=== PATIENT | male | born 1955 | race African-American/Black ===

== ENCOUNTER 2025-03-14 12:26 | Outpatient (CLI) | payer MEDICARE, SELFPAY ==
--- NOTE | ~2025-03-14 | MR_ITS ---
MRI of the thoracic spine Clinical History: Back pain Technique: Axial T2-weighted and gradient images, and sagittal T1-weighted, T2-weighted, and STIR genevieve ges were acquired. Findings: There is no fracture or subluxation of the thoracic spine. Vertebral bodies maintain normal height and alignment. No suspicious bone marrow signal abnormality seen. There is moderate to advanc ed degenerative disc narrowing throughout the mid to lower thoracic spine. There are few minimal disc bulges at the mid thoracic spine. At T10-T11, there is disc bulge and facet arthropathy, with mild to moderate canal stenosis but no fr ank cord compression. There is severe bilateral neural foraminal narrowing at T10-T11. There is sever e bilateral neural foraminal narrowing at T12-L1, left worse than right. There is moderate right neur al foraminal narrowing at T7-T8, T8-T9, and T9-T10. No abnormal signal seen in the spinal cord. Paravertebral soft tissues are unremarkable. Impression: Moderate degenerative spondylosis, as above, with multilevel neural foraminal narrowing. There is mil d to moderate canal stenosis at T10-T11 without gretel cord compression. No fracture or subluxation. Reviewed, dictated and finalized at location . Impression: Moderate degenerative spondylosis, as above, with multilevel neural foraminal n arrowing. There is mild to moderate canal stenosis at T10-T11 without gretel cor d compression. No fracture or subluxation.
--- NOTE | ~2025-03-14 | MR_ITS ---
MRI of the cervical spine Clinical History: Back pain Technique: Axial T2-weighted and gradient images, and sagittal T1-weighted, T2-weighted, and STIR genevieve ges were acquired. Findings: There is minimal reversal normal cervical lordosis. No fracture or subluxation evident. The re reactive marrow signal changes due to underlying degenerative disc disease, but no suspicious/aggr essive bone marrow signal abnormality seen. At C2-C3, there is a large central to right paracentral disc extrusion, resulting in moderate to chante re canal stenosis and cord compression at this level. Neural foramina are preserved. At C3-C4, there is severe degenerative disc narrowing. There is minimal disc osteophyte complex with bilateral mild facet arthropathy. There is mild canal stenosis without gretel cord compression. Probab le mild bilateral neural foraminal narrowing. At C4-C5, there is severe degenerative disc narrowing. There is disc osteophyte complex with mild can al stenosis but no gretel cord compression. There is bilateral neural foraminal narrowing with mild bi lateral facet arthropathy. At C5-C6, there is severe degenerative disc narrowing. There is mild disc osteophyte complex with mil d canal stenosis but no gretel cord compression. There is left neural foraminal narrowing. Right neura l foramen probably preserved. At C6-C7, there is severe degenerative disc narrowing. There is disc osteophyte complex with mild can al stenosis but no gretel cord compression. There is advanced bilateral neural foraminal narrowing. No abnormal signal seen in the spinal cord. Paravertebral soft tissues are unremarkable. Impression: Large central to right paracentral disc extrusion at C2-C3, resulting in moderate to severe canal yamilet nosis and cord compression at this level. Advanced degenerative spondylosis in the remainder of the cervical spine as well, though without any other areas of gretel cord compression. Multilevel neural foraminal narrowing present. Reviewed, dictated and finalized at [place] [facility]. Impression: Large central to right paracentral disc extrusion at C2-C3, resulting in modera te to severe canal stenosis and cord compression at this level. Advanced degenerative spondylosis in the remainder of the cervical spine as wel l, though without any other areas of gretel cord compression. Multilevel neural foraminal narrowing present.
--- NOTE | ~2025-03-14 | MR_ITS ---
MRI of the lumbar spine Clinical History: Back pain Technique: Axial T2-weighted images, and sagittal T1-weighted, T2-weighted, and and T2 fat-sat images were acquired. Findings: No acute fracture or subluxation seen. Vertebral bodies maintain normal height and alignmen t. There is heterogeneous marrow signal due to underlying degenerative disc disease with areas of Mod ic signal changes and reactive marrow edema. No suspicious bone marrow signal abnormality seen. At L1-L2, there is severe degenerative tearing. Disc bulge and severe facet arthropathy result in mod erate to severe spinal canal stenosis/thecal sac compression. There is severe bilateral neural forami nal narrowing. At L2-L3, there is severe degenerative disc narrowing. Disc bulge and moderate facet arthropathy resu lt in mild central canal stenosis/thecal sac compression. There is severe left neural foraminal narro wing and moderate to severe right neural foraminal narrowing. At L3-L4, there is advanced degenerative disc narrowing. There is mild disc bulge with moderate facet arthropathy. No gretel central canal stenosis. There is moderate bilateral neural foraminal narrowing . At L4-L5, there is advanced degenerative disc narrowing. Disc bulge and advanced facet arthropathy re sult in mild to moderate central canal stenosis/thecal sac compression. There is severe bilateral navneet ral foraminal narrowing. At L5-S1, there is advanced degenerative disc narrowing with mild disc bulge and moderate facet arthr opathy. No central canal stenosis. There is moderate to severe bilateral neural foraminal narrowing, right worse than left. Paravertebral soft tissues are unremarkable. Impression: Severe degenerative spondylosis throughout the lumbar spine, as detailed above. Reviewed, dictated and finalized at [facility]. Impression: Severe degenerative spondylosis throughout the lumbar spine, as detailed above.
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
== END 2025-03-14 12:27 | disposition home or self-care (01) ==
PROVIDERS: PCP Family Medicine; Visit Provider Psychiatry & Neurology Neurology
DX: M50.21 Other cervical disc displacement, high cervical region (principal); M50.01 Cervical disc disorder with myelopathy, high cervical region; M48.02 Spinal stenosis, cervical region; M47.812 Spondylosis without myelopathy or radiculopathy, cervical region; M47.816 Spondylosis without myelopathy or radiculopathy, lumbar region; M47.814 Spondylosis without myelopathy or radiculopathy, thoracic region; M48.04 Spinal stenosis, thoracic region; Z18.10 Retained metal fragments, unspecified; G44.229 Chronic tension-type headache, not intractable; R29.6 Repeated falls; Z87.828 Personal history of other (healed) physical injury and trauma
CPT/HCPCS: 72141; 72146; 72148; 73552

== ENCOUNTER 2025-05-03 09:55 | Outpatient (CLI) | payer MEDICARE, SELFPAY ==
--- NOTE | ~2025-05-03 | CT_ITS ---
Noncontrast CT scan of the cervical spine Technique: Multiple contiguous axial [address] images of the cervical spine were obtained and rec onstructed in 2D sagittal and coronal planes on the acquisition scanner. Dose reduction technique was used on this scan by utilizing automated exposure control, adjustment of the mA and/or kV according to patient size. The dose-length product (DLP) was 568.02 mGy-cm. Clinical History: Disease of spinal cord, unspecified Findings: No acute fracture or subluxation. There is minimal reversal normal cervical lordosis. There is moderate degenerative change at the articulation of the odontoid process with the anterior arch o f C1. At C2-C3, there is moderate degenerative distended. There is extensive ossification the posterior rosie gitudinal ligament at the C2 and C3 levels. There is severe canal stenosis with associated severe cor d compression at the C2 level, C2-C3 disc space level. There is probable mild canal stenosis at the C 3 level related to ossification the posterior longitudinal ligament. There is right neural foraminal narrowing at C2-C3. At C3-C4, there is severe degenerative spurring. There is facet arthropathy bilaterally resulting in bilateral severe neural foraminal narrowing. Possible mild canal stenosis. At C4-C5, there is severe degenerative disc narrowing. There is disc bulge. There is left neural fora tray narrowing and possible mild right neural foraminal narrowing. Probable moderate canal stenosis. At C5-C6, there is severe degenerative disc narrowing. There is minimal disc bulge with probable mild canal stenosis. There is bilateral neural foraminal narrowing, left worse than right. At C6-C7, there is severe degenerative disc narrowing. There is focal ossification the posterior long itudinal ligament with probable moderate canal stenosis. There is bilateral moderate to severe neural foraminal narrowing. Paravertebral soft tissues are otherwise unremarkable. 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 Additional advanced degenerative spondylitic changes throughout the cervical spine, as above. Reviewed, dictated and finalized at location M. 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 Additional advanced degenerative spondylitic changes throughout the cervical sp ine, as above.
--- NOTE | ~2025-05-03 | XR_ITS ---
Cervical Spine: AP, lateral, open-mouth views Clinical History: Pain Findings: There is reversal of the normal cervical lordosis. No fracture or sublocation. There is sev ere degenerative disc narrowing throughout the cervical spine. There is moderate facet arthropathy th roughout. No instability evident on flexion or extension. Pre-vertebral soft tissues are unremarkable . Impression: Advanced degenerative spondylosis. No fracture, subluxation, or instability identified. Reviewed, dictated and finalized at location . Impression: Advanced degenerative spondylosis. No fracture, subluxation, or instability identified.
== END 2025-05-03 09:56 | disposition home or self-care (01) ==
PROVIDERS: PCP Family Medicine; Visit Provider Neurological Surgery
DX: G95.9 Disease of spinal cord, unspecified (principal); M48.02 Spinal stenosis, cervical region; M43.02 Spondylolysis, cervical region
CPT/HCPCS: 72050; 72125

== ENCOUNTER 2025-06-11 11:32 | Outpatient (CLI) | payer MEDICARE, SELFPAY ==
--- NOTE | ~2025-06-11 | XR_ITS ---
EXAMINATION: XR chest 2V 06/11/2025 13:09 INDICATION: Disease of the spinal cord. Preop surgery. PROCEDURE: PA and lateral views the chest COMPARISON: No prior studies for comparison. FINDINGS: The lungs are clear. The cardiomediastinal silhouette is within normal limits. There are no pleural effusions. There is no pneumothorax suspected. There are bilateral nipple shadows. IMPRESSION: 1: NO ACUTE CARDIOPULMONARY DISEASE. Reviewed, dictated and finalized at location B.
--- OUTSIDE RECORDS SUMMARY | 2025-06-11 11:38 | XMS_ITS | Clinical Summary ---
Author Organization [facility] Address [facility] [place] [address] Care Team Providers Care Control Officer Name Role Phone Michele Monique MD Primary Care Provider [phone] Colt Montes MD Unavailable [phone] Allergies Active Allergy Reactions Criticality Noted Date Comments Cyclobenzaprine Other (see comment) Low 06/13/2021 Shrimp Extract Angioedema High 11/20/2021 Tramadol Other (see comment), GI Upset Low 01/29/2015 Stomach/GI Upset shaking Medications carbidopa-levo dopa 25-100 MG tablet 9 Active furosemide 20 MG tablet 9 Active tamsulosin 0.4 MG Cap 9 Active sildenafil (VIAGRA) 100 MG tablet Viagra 100 mg tablet TAKE 1 TABLET BY MOUTH EVERY DAY NEEDED, APPROXIMATELY 1 HOUR BEFORE SEXUAL ACTIVITY Active simvastatin 20 MG tablet Take 1 tablet (20 mg total) by mouth daily. 1 Active gabapentin 600 MG tablet 1 Active VENTOLIN HFA 108 (90 Base) MCG/ACT inhaler Inhale 2 puffs into the lungs every 4 (four) hours as needed. 0 Active EPINEPHrine 0.3 MG/0.3ML injection 1 Active famotidine 20 MG tablet TAKE 1 TABLET BY MOUTH TWICE DAILY FOR 15 DAYS 1 Active traMADol 50 MG tablet tramadol 50 mg tablet Active Cholecalcifero l 50 MCG (2000 UT) Cap Take 2,000 Units by mouth daily. 3 Active QULIPTA tablet Take 1 tablet (30 mg total) by mouth daily. 3 Active aspirin EC (ECOTRIN) 325 MG tablet Take 1 tablet (325 mg total) by mouth daily. 4 Active metoprolol succinate ER (TOPROL-XL) 25 MG 24 hr tablet Take 0.5 tablets (12.5 mg total) by mouth daily. Active nitroglycerin (NITROSTAT) 0.4 MG SL tablet DISSOLVE 1 TABLET UNDER THE TONGUE DIRECTED Active amLODIPine (NORVASC) 5 MG tablet Take 1 tablet (5 mg total) by mouth daily. Active fish oil (OMEGA-3 FATTY ACID) 1000 MG Cap capsule Take 1 capsule (1,000 mg total) by mouth 2 (two) times daily. Active magnesium oxide (MAG-OX) 400 (240 Mg) MG tablet Take 1 tablet (400 mg total) by mouth daily. 4 Active lisinopril-hyd roCHLOROthiazi de (ZESTORETIC) 20-12.5 MG tablet Take 2 tablets by mouth daily. 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 01/31/2019 Dyslipidemia 06/01/2017 Hypertension 03/09/2016 Encounters Date Type Department Care Team Description 03/14/2025 10:45 AM CDT Office Visit [facility], [address] [address] Jose Velze PA Arrhythmia (PVC FOLLOW UP) 03/14/2025 Travel from Last 3 Months Family History Medical History Relation Comments Hypertension Brother Colon Cancer Father No Known Problems Maternal Grandfather No Known Problems Maternal Grandmother No Known Problems Paternal Grandfather No Known Problems Paternal Grandmother Hypertension Sister Relation Status Comments Brother Father Maternal Grandfather Maternal Grandmother Mother Paternal Grandfather Paternal Grandmother Sister Social History Tobacco Use Types Packs/Day Years Used Date Smoking Tobacco: Never Passive Smoke Exposure: Never Smokeless Tobacco: Never Tobacco Cessation:Counseling Given: No Comments:Never Smoked Alcohol Use Standard Drinks/Week Comments Not Currently 0 (1 standard drink = 0.6 oz pur e alcohol) none AUDIT-C Answer Date Recorded Frequency of Alcohol Consumption 2-4 times a mon 01/31/2019 Average Number of Drinks Not on file 019 Frequency of Binge Drinking Not on file 01/13 PHQ-2 Answer Date Recorded Patient Health Questionnaire-2 Score 1 09/26/2023 Sex and Gender Information Value Date Recorded Sex Assigned at Male 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 Male 4:48 PM CDT Gender Identity Not on file Sexual Orientation Not on file Last Filed Vital Signs Vital Sign Reading Time Taken Comments Blood Pressure 138/78 03/14/2025 10:46 AM CDT Pulse 61 03/14/2025 10:46 AM CDT Temperature 36.8 C (98.2 F) 01/31/2025 10:45 AM CDT Respiratory Rate 16 01/31/2025 1:00 PM CDT Oxygen Saturation 95% 03/14/2025 10:46 AM CDT Inhaled Oxygen Concentration - - Weight 88.9 kg (196 lb) 03/14/2025 10:46 AM CDT Height 172.7 cm (5' 8) 03/14/2025 10:46 AM CDT Body Mass Index 29.8 03/14/2025 10:46 AM CDT Plan of Treatment Health Maintenance Due Date Last Done Comments Hepatitis C 1972 Zoster Vaccines (1 of 2) 2004 Annual Medicare Wellness Visit 2019 COVID-19 Vaccine ( season) 2024 09/09/2023, 09/19/2022, 08/19/2021, Additional history exists PHQ-2 (Physician Chunky) 11/14/2024 09/26/2023 DTaP, Tdap and Td Vaccines (2 - Td or Tdap) 01/14/2026 01/15/2016 RSV Immunization or 60+ Years (1 - 1-dose 75+ series) 2029 Colorectal Cancer Screening Colonoscopy (10 Years) 02/27/2032 02/26/2022, 02/26/2022 Pneumococcal Vaccine: 50+ Years Completed 07/01/2021, 10/02/2019 Meningococcal B Vaccine Aged Out No l onger eligible based on patient's age to complete this topic Meningococcal Vaccine Aged Out No rosie priya eligible based on patient's age to complete this topic RSV Immunizations Under 20 Months Aged Out No longer eligible based on patient's age to complete this topic Procedures Procedure Name Priority Date/Time Associated Diagnosis Comments ELECTROCARDIOGRAM (NON MIDMARK ACQUIRED) Routine 03/14/2025 10:53 AM CDT Heart palpitations COLONOSCOPY Routine 02/26/2022 10:11 AM CDT from Last 3 Months or Most Recently Relevant to Health Maintenance Results * ELECTROCARDIOGRAM (03/14/2025 10:53 AM CDT) 03/14/2025 10:5 3 AM CDT Narrative [facility] - 03/14/2025 9:59 PM CDT [facility] Test Date: 2025-03-14 Pat Name: SOREN ELLIS Department: 112 Room: Gender: Male Supervisor Rod Placing: : 1955 Requested By: JOSE VELEZ Order Number: [id number] Reading CHRIS Artis Measurements Intervals [place] Rate: 59 P: 77 VT: 157 QRS: 231 QRSD: 168 T: 34 QT: 449 QTc: 445 Interpretive Statements SINUS BRADYCARDIA RIGHT AXIS DEVIATION RIGHT BUNDLE BRANCH BLOCK SEPTAL MYOCARDIAL INFARCTION, PROBABLY OLD Procedure Note Ed Artis MD - 03/14/2025 [facility] Test Date: 2025-03-14 Pat Name: SOREN ELLIS Department: 112 Room: Gender: Male Supervisor Rod Placing: : 1955 Requested By: JOSE VELEZ Order Number: [id number] Reading : Ed Artis Measurements Intervals [place] Rate: 59 P: 77 VT: 157 QRS: 231 QRSD: 168 T: 34 QT: 449 QTc: 445 Interpretive Statements SINUS BRADYCARDIA RIGHT AXIS DEVIATION RIGHT BUNDLE BRANCH BLOCK SEPTAL MYOCARDIAL INFARCTION, PROBABLY OLD us Jose VILLA PROCEDURES-ORDERABLE NO CHARGE Final Result [facility] from Last 3 Months Insurance [facility] Advance Directives * Full Code (Latest Code Status on File) Date Activated Date Inactivated Comments 01/31/2025 11:05 AM 01/31/2025 3:21 PM Care Teams Control Officer Relationship Specialty Start Date End Date Michele Monique MD PCP - General 02/08/17 Colt Montes MD [address] [place] [address] CARDIOVASCULAR DISEASE 12/07/24
--- OUTSIDE RECORDS SUMMARY | 2025-06-11 11:38 | XMS_ITS | Clinical Summary ---
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 Gender Identity Not on file Sexual Orientation Not on file Plan of Treatment Health Maintenance Due Date Last Done Comments Hepatitis C Virus (HCV) Screening 1955 Cologuard 1999 Colonoscopy 1999 Colorectal Cancer Screening 1999 Immunochemical Fecal Occult Blood 1999 Zoster Immunization (1 of 2) 2004 SARS-COV-2 Immunization ( season) 2024 08/19/2021, 01/31/2021, 01/24/2021, Additional history exists Influenza Immunization (#1) 07/15/202507/15, 10/02/2019, 08/01/2017, Additional history exists Respiratory Syncytial Virus (RSV) Immunization (Adult) (1 - 1-dose 75+ series) 2029 DTaP/Tdap/Td Immunization Discontinued 01/15/2016 TdaP Immunization Completed 01/15/2016 Pneumococcal Immunization (50+ years) Completed 07/01/2021, 10/02/2019 Hepatitis B Immunization Aged Out No longer eligible based on patient's age to complete this topic Human Papillomavirus (HPV) Immunization Aged Out No longer eligible based on patient's age to complete this topic Meningococcal Immunization (ACWY) Aged Out No longer eligible based on patient's age to complete this topic Rotavirus Immunization Aged Out No lo nger eligible based on patient's age to complete this topic
[2025-06-11 13:32] LABS: Hematocrit 37.9 % (42.0-52.0); Hemoglobin 11.8 g/dL (14.0-18.0); Mean Corpuscular HGB Conc 31.1 g/dl (32-36); Mean Corpuscular Hemoglobin 27.6 pg (26-34); Mean Corpuscular Volume 88.6 fl (80-100); Platelet Count Result 213 k/mm3 (150-375); Red Blood Count 4.28 M/mm3 (4.6-6.20); White Blood Count 4.8 K/mm3 (4.5-10.0)
[2025-06-11 13:36] LABS: Add Urine Microscopic? NO; Appearance Urine Clear (Clear); Glucose Urine UA Negative (Negative); Leukocyte Esterase Ur Negative LEU/UL (Negative); Nitrate Urine Negative (Negative); Specific Grav Ur 1.021 (1.001-1.035)
[2025-06-11 13:44] LABS: INR 1.0; Partial Thromboplastin Time 25.4 Seconds (22.3-36.8); Prothrombin Time 13.1 Seconds (11.1-14.7)
[2025-06-11 13:53] LABS: Anion Gap 7 mmol/L (4-12); Blood Urea Nitrogen 22 mg/dL (9-20); Calcium 8.7 mg/dL (8.4-10.2); Carbon Dioxide 28 mmol/L (22-30); Chloride 103 mmol/L (98-107); Estimated Glomerular Filt Rate 51; Glucose 94 mg/dL (65-110); Potassium 3.9 mmol/L (3.4-5.0); Sodium 138 mmol/L (137-145)
== END 2025-06-11 11:33 | disposition home or self-care (01) ==
LOC: ANHSURGERY 11:36
PROVIDERS: PCP Family Medicine; Visit Provider Neurological Surgery
DX: Z01.818 Encounter for other preprocedural examination (principal); G95.9 Disease of spinal cord, unspecified; M43.12 Spondylolisthesis, cervical region
CPT/HCPCS: 36415; 71046; 80048; 81003; 85027; 85610; 85730; 86850; 86900; 86901

== ENCOUNTER 2025-06-20 08:47 | Outpatient (CLI) | payer MEDICARE, SELFPAY ==
--- NOTE | ~2025-06-20 | CT_ITS ---
EXAMINATION: [id number] DATE: 06/20/2025 09:37 INDICATION: Preoperative planning. Disease of spinal cord. TECHNIQUE: Computed tomography (CT) of the cervical spine was performed without intravenous contrast. Automated exposure control and iterative reconstruction technique were employed. The dose-length pro duct was 607.69 mGy-cm. COMPARISON: None FINDINGS: Slight reversal of the normal cervical lordosis. 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 Vertebral body heights are normal. There is severe disc height loss at C3-C4 through C6-C7 as wel l as in the upper thoracic spine at T2-T3 and T3-T4. Moderate disc height loss at C2-C3, C7-T1 and T1 -T2. There multiple small endplate erosions throughout the cervical and upper thoracic spine, with di ffuse sclerosis of the bones, both findings which can be seen with renal osteodystrophy. There is pro minent heterotopic ossification along the posterior longitudinal ligament beginning at the level of t he base of the odontoid process and extending caudally to the level of the inferior endplate of C3. A dditional ossification along the posterior longitudinal ligament at C5 and C6. This results in modera te central canal stenosis at the level of the dens progressing to moderate to severe at level of C2-C 3 which along with the more caudal levels will be further detailed below. Small amount of atheroscler otic calcification at the bilateral carotid bulbs. Cervical soft tissues are otherwise unremarkable. Visualized portion of the upper lungs along with the bilateral mastoid air cells and middle ear cavit ies are clear. The following disc levels are specifically discussed: C2-C3: Ossification of the posterior longitudinal ligament which is more prominent on the right which severely narrows the right side of the central canal. There is moderate stenosis of the left side of the central canal. There is mild right and moderate left uncovertebral joint osteoarthritis. There i s mild bilateral facet joint osteoarthritis. There is mild left neural foraminal stenosis. C3-C4: Posterior disc osteophyte complex. There is moderate right and severe left uncovertebral joint osteoarthritis. There is severe bilateral facet joint osteoarthritis. There is moderate bilateral ne ural foraminal stenosis. There is mild central canal stenosis. C4-C5: Posterior disc osteophyte complex. There is severe right and moderate to severe left uncoverte bral joint osteoarthritis. There is moderate left and mild to moderate right facet joint osteoarthrit is. There is mild right and moderate left neural foraminal stenosis. There is mild moderate central c anal stenosis. C5-C6: Posterior disc osteophyte complex. There is severe bilateral uncovertebral joint osteoarthriti s. There is mild bilateral facet joint osteoarthritis. There is moderate bilateral neural foraminal s tenosis. There is mild to moderate central canal stenosis. C6-C7: Posterior disc osteophyte complex along with ossification along the posterior longitudinal lig ament There is severe bilateral uncovertebral joint osteoarthritis. There is mild bilateral facet ted nt osteoarthritis. There is moderate bilateral neural foraminal stenosis. There is moderate central c anal stenosis. C7-T1: There is moderate bilateral uncovertebral joint osteoarthritis. There is moderate bilateral fa cet joint osteoarthritis. There is mild to moderate bilateral neural foraminal stenosis. There is no central canal stenosis. IMPRESSION: 1. Severe cervical spondylosis along with ossification along the posterior longitudinal ligament whic h contributes to moderate to severe right-sided prominent central canal stenosis at C2-C3 with additi onal mild to moderate central canal stenosis from the level of the base of the dens through C6-C7. 2. Diffuse sclerosis of the bones and multiple small endplate osteophytes consistent with renal osteo dystrophy. Reviewed, dictated and finalized at location A. IMPRESSION: 1. Severe cervical spondylosis along with ossification along the posterior long itudinal ligament which contributes to moderate to severe right-sided prominent central canal stenosis at C2-C3 with additional mild to moderate central canal stenosis from the level of the base of the dens through C6-C7. 2. Diffuse sclerosis of the bones and multiple small endplate osteophytes consi stent with renal osteodystrophy.
--- OUTSIDE RECORDS SUMMARY | 2025-06-20 08:54 | XMS_ITS | Clinical Summary ---
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
== END 2025-06-20 08:48 | disposition home or self-care (01) ==
PROVIDERS: PCP Family Medicine; Visit Provider Neurological Surgery
DX: Z01.818 Encounter for other preprocedural examination (principal); M47.892 Other spondylosis, cervical region
CPT/HCPCS: 72125

== ENCOUNTER 2025-06-26 16:33 | Inpatient (IN) | payer MEDICARE, SELFPAY ==
[2025-06-11 12:11] VITALS: BP 135/65; PULSE 58; RESP 16; TEMP 36.9; O2SAT 98; BMI 30.9
--- NOTE | 2025-06-11 12:36 | PC.NURSE ---
Report to the Outpatient Waiting Room, entrance under the green pavilion located off [facility], at time __0900am on date __06/26/25 . Planned Procedure Time: __1100am .? Time changes happen often and if your time is changed the preop area will call you the afternoon before. - You and your visitor will be asked to self-screen and do not enter if you have any COVID symptoms. Please call surgeon if you need to reschedule. - A mask is optional within the hospital at this time. Patients may have clear liquids (water, carbonated beverages, clear teas, apple juice) until 3 hours prior to surgery with a maximum of 20 ounces. - No food from midnight until time of surgery and no smoking, or chewing tobacco (or any form of nicotine). No chewing gum, candy or mints. (0800am) Take only the following medications with a SIP of water on the morning of surgery: Inhaler, Amlodipine, Carbidopa, Gabapentin, Metoprolol, Tramadol if needed , tylenol if needed DO NOT STOP ANY OF YOUR OTHER PRESCRIPTION MEDICATIONS PRIOR TO SURGERY EXCEPT THE FOLLOWING Hold all vitamins, herbs, probiotics and supplements for 3 days per anesthesiologist. Date to take last dose is 06/22/25 Medications to discontinue per physician ___Aspirin for [address] Porter Date to take last dose____06/17/25 Please no make-up, nail icelandic, hairspray, perfume, deodorant, or body powder the day of surgery.? No jewelry (including any body piercings) or valuables the day of surgery, leave them at home.? Please take a shower or bath the night before, or the morning of, surgery with an antibacterial soap.?(GOLD DIAL) Wear comfortable, loose fitting clothing. Bring overnight bag w toiletries, good shoes ? - Jewelry must be removed prior to entering the operating room.? Rings and piercings that are not removed may be cut off. - The hospital will not accept responsibility for valuables.? - Please leave all valuables, including medications, at home the day of surgery. If you are going home after surgery, a licensed truck driver supervisor must drive you home.? - NO public transportation without another adult if you receive anesthesia. - We recommend that an adult stay with you for 24 hours following discharge. - We also recommend that you do not drive, make important decision, drink alcoholic beverages, or take any drugs that were not prescribed by your health care provider for at least 24 hours after your discharge time. Follow any additional instructions given to you from your surgeon. Telephone instructions given to Patient and asked if any additional questions and then verbalized understanding. Patient advised to call surgeon office or pre surgery nurse liaison [phone] if any additional questions.
[2025-06-26] VITALS (15 sets, daily range): BP systolic 110–152; BP diastolic 55–82; PULSE 49–65; RESP 14–20; TEMP 36.4–36.8; O2SAT 95–100
--- NOTE | ~2025-06-26 | XR_ITS ---
EXAMINATION: XR fluoroscopy no charge DATE: 06/26/2025 11:00 CDT INDICATION: CERVICAL FUSHION C2-C3 . TECHNIQUE: 3 fluoroscopic images of the cervical spine were obtained during C2-3 fusion. Fluoroscopy exposure time was 4.7 seconds. Air Kerma 0.85 mGy. DAP 0.17 mGym2. COMPARISON: None FINDINGS/IMPRESSION: Fluoroscopic documentation of C2-3 fusion. Please refer to the operative note for complete procedural details. Reviewed, dictated and finalized at location K.
--- OUTSIDE RECORDS SUMMARY | 2025-06-26 01:32 | XMS_ITS | Clinical Summary ---
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
--- OUTSIDE RECORDS SUMMARY | 2025-06-26 01:33 | XMS_ITS | Clinical Summary ---
Author Organization [facility] Address [facility] [place] [address] Care Team Providers Care Rotor Casting Machine Operator Name Role Phone Michele Monique MD Primary Care Provider [phone] Colt Montes MD Unavailable [phone] Allergies Active Allergy Reactions Criticality Noted Date [...] replacement surgery 01/31/2019 Dyslipidemia 06/01/2017 Hypertension 03/09/2016 Family History Medical History Relation Comments Hypertension [...] Frequency of Alcohol Consumption 2-4 times a tue01/31/2019 Average Number of Drinks Not on file 019 Frequency of Binge Drinking Not on file 01/13 PHQ-2 Answer Date Recorded Patient Health Questionnaire-2 Score 1 09/26/2023 Sex and Gender Information Value Date Recorded Sex Assigned at Male 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 Male 4:48 PM CDT Gender [...] 09/19/2022, 08/19/2021, Additional history exists PHQ-2 (Physician Quinault) 11/14/2024 09/26/2023 DTaP, Tdap and Td Vaccines [...] Procedure Name Priority Date/Time Associated Diagnosis Comments COLONOSCOPY Routine 02/26/2022 10:11 AM CDT from Last 3 Months or Most Recently Relevant to Health Maintenance Insurance [facility] Advance Directives * Full Code (Latest Code Status on File) Date Activated Date Inactivated Comments 01/31/2025 11:05 AM 01/31/2025 3:21 PM Care Teams Rotor Casting Machine Operator Relationship Specialty Start Date End Date Michele Monique MD PCP - General 02/08/17 Colt Montes MD [address] [place] [address] [address] [place], [place] CARDIOVASCULAR DISEASE 12/07/24
[2025-06-26] MEDS: LACTATED RINGERS 1,000 ML 30 ML IV CONT ×2 (10:00→14:11)
--- NOTE | 2025-06-26 10:25 | P.HP_ITS ---
H&P: HPI History of Present Illness Date/Time: 06/26/25 10:25 Chief Complaint: myelopathy Narrative: From 04/18: Mr. Garcia is a 69-year-old male with history of Parkinson disease who was referred by Dr. Landaverde for evaluation of cervical myelopathy. The patient and his daughter described progressive issues with balance and falls over the last 6-12 months. His daughter indicates that he falls 2 times per week. He states that he has to hold onto galindo or furniture in order to stabilize himself. He uses a cane as well for stability, and he started using this after having hip replacement in 2017. He indicates that his right side overall is weaker than his left but denies any issues with dropping objects or fine motor dysfunction of his hands. He infrequently has numbness in his hands. He also describes pain across his lower back when he gets up to walk. He seemingly has claudicatory pain in the legs with walking as well. He denies any bowel or bladder changes. He initially indicated that he has no pain in his neck or arms but later indicated that he has pain in the right shoulder radiating to the elbow. He denies radicular pain from the neck. He notably had a cardiac PVC ablation in January at [facility]. He continues to wear a Holter monitor. He takes a baby aspirin but no other blood thinners. He follows with a anesthesia associate in [place]. From 05/16: He denies any significant changes since his last visit. He returns today with additional imaging to review. He indicates that he is still working in a halfway-type position. Review of Systems Review of Systems: All systems reviewed & are unremarkable except as noted in HPI and below PMFSH Past Medical History Medical History Cervical myelopathy Episodic migraine Myelopathy Frequent falls Lower back pain REM behavioral disorder Chronic tension headaches Social History Social History Smoking status: Never smoker Alcohol intake: current Substance use: former Substance use type: marijuana Do You Feel Safe in your Home?: Yes Lack of Transportation: No Lack of Food: Sometimes True Current Housing: I Have Housing Concerned About Future Housing: No Difficulty Paying Gas/Electric Bills: YES Difficulty Paying for Meds: YES Currently Unemployed: YES Education: High School Diploma/GED Difficulty w/ Childcare or Family Care: No Living arrangements: alone Occupation/Education: unemployed Gender identity (if verbalized by the patient): Male Meds Home Medications and Allergies Home Medications ?Medication ?Instructions ?Recorded ?Confirmed ?Type acetaminophen 500 mg capsule 500 mg PO Q6H PRN pain 08/16/23 06/11/25 History cholecalciferol (vitamin D3) 50 50 mcg PO DAILY 08/16/23 06/11/25 History mcg (2,000 unit) capsule gabapentin 600 mg tablet 600 mg PO TID 08/16/23 06/11/25 History simvastatin 20 mg tablet 20 mg PO DAILY 08/16/23 06/11/25 History tramadol 50 mg tablet 50 mg PO Q6H PRN pain 08/16/23 06/11/25 History carbidopa 25 mg-levodopa 100 mg 1 tablet PO TID #120 tabs 05/06/25 06/11/25 Rx tablet albuterol sulfate 90 mcg/actuation 1 puff inhalation Q6H PRN 06/11/25 06/11/25 History aerosol inhaler bronchospasm amlodipine 10 mg tablet 10 mg PO DAILY 06/11/25 06/11/25 History aspirin 81 mg tablet,delayed 81 mg PO DAILY 06/11/25 06/11/25 History release (Adult Aspirin Regimen) atogepant 60 mg tablet (Qulipta) 60 mg PO DAILY PRN migraine 06/11/25 06/11/25 History headache ferrous sulfate 325 mg (65 mg 325 mg PO DAILY 06/11/25 06/11/25 History iron) tablet (FeroSul) hydrochlorothiazide 12.5 mg capsule 12.5 mg PO .day 06/11/25 06/11/25 History losartan 50 mg tablet 50 mg PO DAILY 06/11/25 06/11/25 History metoprolol succinate 25 mg 25 mg PO DAILY 06/11/25 06/11/25 History tablet,extended release 24 hr prazosin 2 mg capsule 2 mg PO QPM 06/11/25 06/11/25 History tamsulosin 0.4 mg capsule 0.4 mg PO .am 06/11/25 06/11/25 History Allergies Allergy/AdvReac Type Severity Reaction Status Date / Time shrimp Allergy Severe Anaphylaxis Verified 06/26/25 10:05 NSAIDS (Non-Steroidal AdvReac Severe kidney Verified 06/26/25 10:05 Anti-Inflamma issues should not use cyclobenzaprine AdvReac Unknown Other Verified 06/26/25 10:05 Vital Signs Vital Signs - 24 hr 06/26/25 09:30 Temperature 97.7 F Pulse Rate 49 L Respiratory Rate 16 Blood Pressure 131/62 Pulse Oximetry 98 Oxygen Delivery Room Air Exam Narrative: Hyperreflexia in lower extremities Walks with cane Unless otherwise stated above, the patient's physical exam is as follows: General: -Well developed and well nourished. No a cute distress. Cooperative with exam. Mental status: -Awake and oriented to person, place, an d time. Affect is normal. -Fund of knowledge appropriate -Recent and remote memory are intact -Attention span and concentration appear normal -Language function is normal -There is no evidence of aphasia in conv ersational speech. Cranial nerves: -CN II: Visual mills full to bedside co nfrontation -CN III, IV, : Pupils equal, round, an d reactive to light; extraocular movements, no ptosis, no nystagmus -CN V: Facial sensation intact in V1 thr ough V3 distributions -CN VII: Face symmetric -CN VIII: Hearing intact to conversation al speech -CN IX, X: Palate elevates symmetrically ; normal phonation -CN XI: Symmetric full strength of porter ocleidomastoid and trapezius muscles -CN XII: Tongue protrudes midline Integumentary: -No obvious skin lesions or masses Motor: -Muscle tone normal without spasticity o f flaccidity. No atrophy. No fasciculations. -No pronator drift -Right upper extremity: deltoid 5/5, bic eps 5/5, triceps 5/5, wrist extensors 5/5, wrist flexors 5/5, intrinsics 5/5 -Left upper extremity: deltoid 5/5, pavel ps 5/5, triceps 5/5, wrist extensors 5/5, wrist flexors 5/5, intrinsics 5/5 -Right lower extremity: iliopsoas 5/5, q uadriceps 5/5, hamstrings 5/5, tibialis anterior 5/5, gastroc-soleus 5/5, EHL 5/5 -Left lower extremity: iliopsoas 5/5, qu adriceps 5/5, hamstrings 5/5, tibialis anterior 5/5, gastroc-soleus 5/5, EHL 5/5 Sensory: -Intact to light touch throughout -Normal proprioception throughout Reflexes: -1-2+ DTR's throughout -No Marshall's, clonus, or Babinski bilat romaine I personally reviewed the MRI cervical spine which shows evidence of thickening of the posterior longitudinal ligament extending from C1-C3. There is a right paracentral disc herniation at C2-3 causing spinal cord compression. There are diffuse degenerative changes throughout his cervical spine with significant degenerative disc disease of all discs. he has severe neuroforaminal stenosis bilaterally at C3-4 C4-5, and C6-7, with severe left neuroforaminal stenosis at C5-6 I personally viewed the MRI thoracic spine which shows multiple areas of stenosis in the thoracic spine without significant spinal cord compression. There is also severe central stenosis at L1-2. The tip of the conus is at this level I personally reviewed the CT cervical spine which shows evidence OPLL with calcified disc herniation on the right side at C2-3 contributing to severe central stenosis and spinal cord compression I personally reviewed the dynamic cervical x-rays that do show a slight anterolisthesis of C2 on C3 and slight kyphosis across C2-4 Assessment and Plan Assessment and plan (1) Cervical myelopathy: Code(s): G95.9 - Disease of spinal cord, unspecified Status: Acute Plan Mr. Garcia is a 69-year-old male with history of Parkinson's disease who presents with 6-12 months of progressive gait imbalance and falls who had recent imaging through Neurology showing concern for spinal cord compression particularly the C2-3 level. On physical exam, he does have some hyperreflexia in the lower extremities but no Marshall's, clonus, or Babinski. I reviewed his MRI cervical spine that shows concern for OPLL with a disc herniation at C2-3 causing significant spinal cord compression. There are also various areas of stenosis in his thoracic spine and severe central stenosis at L1-2 with the tip of his conus ends. He then had a CT cervical spine showing evidence of OPLL with calcified disc herniation at C2-3 contributing to the severe central stenosis. His flexion-extension x-rays show slight anterolisthesis of C2 on C3 with the slight kyphosis spanning C2-4. I reviewed the imaging with the patient in person and his daughter over the phone. While he has several areas of stenosis, I am most concerned about the severe cervical stenosis with spinal cord compression and have recommended treatment of this 1st. I have offered him surgery in the form of C2-4 posterior fusion with C2 and C3 laminectomies. We discussed surgery in detail including risks, expected recovery, and restrictions after surgery. We discussed the expectation that surgery will prevent worsening of symptoms and that his symptoms may not improve after surgery. The patient and his daughter expressed understanding and would like to proceed as discussed.
--- NOTE | 2025-06-26 10:25 | WPDHPUPDATE1 ---
History and Physical Update Update Date/Time: 06/26/25 10:25 History and Physical has been reviewed, including an updated exam of the patient. There are NO changes in the patient's condition. Risks, benefits, and alternatives have been discussed and questions answered. Patient agrees to proceed with procedure.
--- NOTE | 2025-06-26 10:43 | WPDANESEPPF ---
Anes - Initial Pre Proc Eval Procedure: Operation Date: 06/26/25 11:00 Proposed Procedures p Stereotactic Computer Assisted C2-3, C3-4, Posterior Cervical Fusion with C2-C3 Laminectomies - Blanca Porter MD Date/Time: 06/26/25 10:43 Surgeon: Blanca Porter MD Pre Op Diagnosis: Cervical Myelopathy, cervical spondylothiasis Pre Op Diagnosis: cervical myelopathy, cervical spondylolisthesis Patient Data Age: 69 Gender: M Height: 1.73 m Weight: 92 kg Last Vital Signs Temp 36.5 C 06/26/25 09:30 Pulse 49 L 06/26/25 09:30 Resp 16 06/26/25 09:30 BP 131/62 06/26/25 09:30 Pulse Ox 98 06/26/25 09:30 O2 Del Method Room Air 06/26/25 09:30 Allergies Allergy/AdvReac Type Severity Reaction Status Date / Time shrimp Allergy Severe Anaphylaxis Verified 06/26/25 10:05 NSAIDS (Non-Steroidal AdvReac Severe kidney Verified 06/26/25 10:05 Anti-Inflamma issues should not use cyclobenzaprine AdvReac Unknown Other Verified 06/26/25 10:05 Home Medications ?Medication ?Instructions ?Recorded ?Confirmed ?Type acetaminophen 500 mg capsule 500 mg PO Q6H PRN pain 08/16/23 06/11/25 History cholecalciferol (vitamin D3) 50 50 mcg PO DAILY 08/16/23 06/11/25 History mcg (2,000 unit) capsule gabapentin 600 mg tablet 600 mg PO TID 08/16/23 06/11/25 History simvastatin 20 mg tablet 20 mg PO DAILY 08/16/23 06/11/25 History tramadol 50 mg tablet 50 mg PO Q6H PRN pain 08/16/23 06/11/25 History carbidopa 25 mg-levodopa 100 mg 1 tablet PO TID #120 tabs 05/06/25 06/11/25 Rx tablet albuterol sulfate 90 mcg/actuation 1 puff inhalation Q6H PRN 06/11/25 06/11/25 History aerosol inhaler bronchospasm amlodipine 10 mg tablet 10 mg PO DAILY 06/11/25 06/11/25 History aspirin 81 mg tablet,delayed 81 mg PO DAILY 06/11/25 06/11/25 History release (Adult Aspirin Regimen) atogepant 60 mg tablet (Qulipta) 60 mg PO DAILY PRN migraine 06/11/25 06/11/25 History headache ferrous sulfate 325 mg (65 mg 325 mg PO DAILY 06/11/25 06/11/25 History iron) tablet (FeroSul) hydrochlorothiazide 12.5 mg capsule 12.5 mg PO .day 06/11/25 06/11/25 History losartan 50 mg tablet 50 mg PO DAILY 06/11/25 06/11/25 History metoprolol succinate 25 mg 25 mg PO DAILY 06/11/25 06/11/25 History tablet,extended release 24 hr prazosin 2 mg capsule 2 mg PO QPM 06/11/25 06/11/25 History tamsulosin 0.4 mg capsule 0.4 mg PO .am 06/11/25 06/11/25 History ECG: SB 50 Other studies: Echo EF 60-65% Patient hx anesthesia problems: none Family hx anesthesia problems: none Results Review: All pre-operative results and documents have been reviewed as part of the pre-operative evaluation. [facility] Past Medical History Medical History Cervical myelopathy Episodic migraine Myelopathy Frequent falls Lower back pain REM behavioral disorder Chronic tension headaches Social History Social History Smoking status: Never smoker Alcohol intake: current Substance use: former Substance use type: marijuana Do You Feel Safe in your Home?: Yes Lack of Transportation: No Lack of Food: Sometimes True Current Housing: I Have Housing Concerned About Future Housing: No Difficulty Paying Gas/Electric Bills: YES Difficulty Paying for Meds: YES Currently Unemployed: YES Education: High School Diploma/GED Difficulty w/ Childcare or Family Care: No Living arrangements: alone Occupation/Education: unemployed Gender identity (if verbalized by the patient): Male Anes - Eval Final PreProcedure Day of Procedure 06/26/25 10:43 Patient weight: obese Heart: bradycardia Lungs: clear to auscultation Airway: Mallampati scale class II Neurological: alert and oriented Last oral intake: >/= 8 hours ASA classification: III Emergent: no Anesthetic plan: proceed Anesthesia type and monitoring: general ETT and standard monitoring Other findings: EMG/Neuromuscular monitoring requesting TIVA Results Review: All pre-operative results and documents have been reviewed as part of the pre-operative evaluation. Informed Consent: The patient's anesthetic plan and its attendant risks and benefits were discussed with the patient/family/POA. Questions were solicited and answers provided to the satisfaction of the patient/family/POA.
[2025-06-26] MEDS: ceFAZolin 2 GM in SODIUM CHLORIDE 0.9% IV 50 ML 100 ML IVPB (11:06)
[2025-06-26] MEDS: BUPIVACAINE/EPINEPHRINE 0.5% 50 ML VIAL 30 ML INFILTRATE (12:13)
--- NOTE | 2025-06-26 14:26 | PM.OP ---
Procedure Note - Brief Procedure Note - Brief Date of procedure: 06/26/25 cervical myelopathy, cervical spondylolisthesis Post-op diagnosis: Same Surgeon: Blanca Porter MD Chemical Research Worker: Brie Anesthesia: GETA Findings: C2 screws placed under navigation without difficulty. C2-4 arthrodesis, C3 and partial C2 laminectomies performed Estimated blood loss (mL): 100 Drains: Yes Packing: No Pathology: None sent Complications: None Condition: Stable Disposition: PACU
[2025-06-26] MEDS: fentaNYL CITRATE INJ (*CRX) 100 MCG/2 ML VIAL 25 MCG IV PUSH ×4 (14:30→15:16)
--- NOTE | 2025-06-26 14:33 | P.OP_ITS ---
Procedure Note - Detailed Date of Procedure 06/26/25 Pre-op Diagnosis cervical myelopathy, cervical spondylolisthesis Post-op Diagnosis Same Procedure Performed 1. C2 pedicle screw instrumentation 2. C3, C4 lateral mass instrumentation 3. C2-3, C3-4 arthrodesis with autograft and allograft 3. Partial C2 and full C3 laminectomies 4. Use of C-arm for fluoroscopy 5. Use of MEP and SSEP neuromonitoring Surgeon Blanca Porter MD [facility] Manager [facility] General Description of Procedure The patient was brought to the operating room where endotracheal anesthesia was induced. Shelton catheter was placed. Neuromonitoring leads were placed. The Neumann headholder was applied, and the patient was transferred to the operating table in the prone position. The head was secured to the bed. All pressure points were padded. The C-arm was used to evaluate the planned incision. The planned surgical site was prepped and draped in usual sterile fashion. Time out was conducted, and local anesthesia was injected. A 10-blade scalpel was used to make the incision. The subcutaneous tissue was dissected with the bovie until the spinous processes were encountered. Self- retaining retractors were placed. A clamp was placed on a spinous process which was confirmed to be the C3 level with the C-arm. The muscles were elevated in a subperiosteal fashion to expose the laminae and lateral masses of C2 through C5 bilaterally. The facet joints were exposed and defined with the bovie. We first placed the navigational clamp on the spinous process of C2 and registered the patient to the pre-operative CT scan. We verified accuracy of the system and selected starting points for bilateral pedicle screws. A pilot safety inspector hole was created with the high-speed drill, and the navigated drill and drill guide were used to create the trajectory for the pedicle screw on the left. This was palpated and tapped. A 3.5 x 22mm screw was placed on the left side. We repeated this process on the right, with a 3.5 x 20mm screw placed here. We then created the pilot safety inspector holes for the lateral mass screws on the left first at C3 and C4. We used the hand drill to drill the trajectory for the lateral mass screws at both levels followed by a tap. We palpated to the trajectory to verify no breaches in the bone. We placed 3.5 x 14mm screws on the left. We repeated this on the right side at C3 and C4, with 3.5 x 12mm screws placed at both levels. We removed the navigational clamp. We then turned our attention to the laminectomies. The high-speed drill was used to create a trough through the laminae of C3 bilaterally. The posterior elements were elevated with a Leksell and Kerrison rongeurs, and the bone was passed off to be morselized for autograft. The ligamentum flavum was elevated with the bone. Small residual pieces of ligamentum and bone were removed with the kerrison. The inferior portion of the lamina of C2 was removed with a Leksell and kerrison rongeurs until the spinal cord felt adequately decompressed. The facet joints were decorticated with the drill.? We ensured hemostasis with the bipolar and Floseal. A 30mm pamela was placed followed by set screws on the right. On the left side, a 40mm pamela followed by set screws were placed. The set screws were placed which were final tightened. The area was copiously irrigated. Magnetos followed by morselized autograft was placed lateral to the screws bilaterally and into the facets. A hemovac drain was placed in the epidural space and tunneled infe riorly. Motors and SSEPs remained stable throughout the case. The muscle was approximated with 0 vicryl. The fascia was closed with 0 vicryl as well. The dermis was closed with 2-0 and 3-0 vicryl. The skin was closed with running 3-0 nylon. The drain was secured with a nylon as well. Sterile dressings were placed. The patient was then removed from the [place] headholder and returned supine. The patient was extubated and transferred to the PACU in stable condition. Billing codes: 93871, 44350, 96444, 19908, 41815, 08260 Estimated Blood Loss 100 Drains Yes Packing No Pathology None sent Complications None Condition Stable Disposition PACU [facility] Billing Surgery - Charge Forward: Surgery Billing
--- NOTE | 2025-06-26 14:56 | SUR.PHASEI ---
surgeon at bedside performing assessment at [id number]
--- NOTE | 2025-06-26 16:45 | PC.NURSE ---
This patient, Soren Garcia, was admitted to 3 [facility] Surg Room 327-01 @ 2645. Patient/family oriented to hospital policies and general routines including ID bracelet, bed and alarms, visiting hours, pain management, procedures, bathroom and other care routines, personal items, smoking policy, room service/diet, and visiting hours. Information on how to activate the Rapid Response Team has been discussed. Patient/Family are encouraged to report perceived risks to care and to ask questions if they do not understand what they are told or what they should do.
[2025-06-26] MEDS: CARBIDOPA/LEVODOPA 25/100 MG TABLET 1 TABLET PO (17:18)
[2025-06-26] MEDS: GABAPENTIN 300 MG CAPSULE 600 MG PO (17:18)
[2025-06-26] MEDS: ACETAMINOPHEN 500 MG TABLET 1000 MG PO ×2 (17:18→21:46)
[2025-06-26] MEDS: oxyCODONE HCL (*CRX) 5 MG TAB IR 10 MG PO ×2 (17:24→21:45)
[2025-06-26] MEDS: PRAZOSIN HCL 1 MG CAPSULE 2 MG PO (17:25)
[2025-06-26] MEDS: ceFAZolin 2 GM/D5W 50 ML 2 GM/50 ML BAG IVPB (19:20)
[2025-06-26] MEDS: DOCUSATE SODIUM 100 MG CAPSULE PO (21:46)
[2025-06-27] MEDS: oxyCODONE HCL (*CRX) 5 MG TAB IR 10 MG PO ×3 (02:08→13:31)
[2025-06-27] MEDS: ceFAZolin 2 GM/D5W 50 ML 2 GM/50 ML BAG IVPB ×3 (02:09→18:53)
[2025-06-27 03:33] VITALS: BP 150/70; PULSE 54; RESP 18; TEMP 36.6; O2SAT 98
[2025-06-27] MEDS: ACETAMINOPHEN 500 MG TABLET 1000 MG PO ×4 (05:39→22:37)
[2025-06-27 07:33] VITALS: BP 148/75; PULSE 57; RESP 16; TEMP 36.7; O2SAT 96
[2025-06-27 09:28] VITALS: PULSE 64
[2025-06-27] MEDS: GABAPENTIN 300 MG CAPSULE 600 MG PO ×3 (09:28→17:07)
[2025-06-27] MEDS: DOCUSATE SODIUM 100 MG CAPSULE PO ×2 (09:28→22:37)
[2025-06-27] MEDS: LOSARTAN POTASSIUM 50 MG TABLET PO (09:28)
[2025-06-27] MEDS: CHOLECALCIFEROL (VITAMIN D3) 25 MCG (1,000 UNITS) TABLET 50 MCG PO (09:28)
[2025-06-27] MEDS: SIMVASTATIN 20 MG TABLET PO (09:28)
[2025-06-27] MEDS: METOPROLOL SUCCINATE EXT REL 25 MG TABCR PO (09:28)
[2025-06-27] MEDS: CARBIDOPA/LEVODOPA 25/100 MG TABLET 1 TABLET PO ×3 (09:28→17:07)
[2025-06-27] MEDS: TAMSULOSIN HCL 0.4 MG CAPSULE PO (09:29)
[2025-06-27] MEDS: CYCLOBENZAPRINE HCL 10 MG TABLET PO ×2 (09:29→13:32)
[2025-06-27] MEDS: FERROUS SULFATE 325 MG TABLET DR BY MOUTH (09:29)
[2025-06-27 11:33] VITALS: BP 147/75; PULSE 59; RESP 15; TEMP 36.8; O2SAT 98
--- NOTE | 2025-06-27 12:36 | WPDANESPN ---
Anes - Prog Note Post-Op Date/Time: 06/27/25 12:36 Cardiovascular status: normal Respiratory status: normal Airway patency: baseline Mental status: baseline Vital Signs: Last Vital Signs Temp 36.8 C 06/27/25 11:33 Pulse 59 L 06/27/25 11:33 Resp 15 06/27/25 11:33 BP 147/75 H 06/27/25 11:33 Pulse Ox 98 06/27/25 11:33 O2 Del Method Room Air 06/27/25 10:34 O2 Flow Rate 2 06/26/25 16:20 Pain Score (VAS): 3 I/O: Intake & Output 06/26/25 06/27/25 06/27/25 23:59 07:59 15:59 Intake Total 570 730 358 Output Total 5 250 Balance 568 462 358 Patient Feedback: Patient satisfied with anesthetic care.
--- NOTE | 2025-06-27 13:05 | WPDNEUROSGPN ---
Progress Note: A&P Assessment and Plan (1) Cervical myelopathy: Code(s): G95.9 - Disease of spinal cord, unspecified Status: Acute (2) Status post cervical arthrodesis: Code(s): Z98.1 - Arthrodesis status Status: Acute Plan -Will plan to keep him here overnight for pain control -Anticipate discharge home tomorrow morning -Will plan for hemovac and dressing removal tomorrow morning -He can shower tomorrow and get his incision wet -Follow up with me in clinic in 2 weeks for suture removal Subjective Date/time seen: 06/27/25 13:05 Interval history: Doing fairly well today with expected neck pain which is being improved medication. He has some soreness in his shoulders. He denies any pain or paresthesias into his arms. He ambulated with Physical therapy who cleared him for discharge home with outpatient therapy. He is tolerating oral intake. He is voiding independently. Review of Systems Review of Systems: All systems reviewed & are unremarkable except as noted in HPI and below Exam Narrative: AOx4 Dressing c/d/i HV 75cc out since surgery Moving all extremities with good strength Sensation intact to light touch in upper extremities Objective Data Vital Signs Vital Signs: Vital Signs - 24 hr 06/26/25 14:11 06/26/25 14:20 06/26/25 14:35 Temperature 97.7 F Pulse Rate 52 L 56 L 65 Respiratory Rate 18 18 18 Blood Pressure 123/65 133/77 133/77 Pulse Oximetry 97 100 100 Oxygen Delivery Simple Face Mask Simple Face Mask Simple Face Mask Oxygen Flow Rate 8 8 8 06/26/25 14:50 06/26/25 15:05 06/26/25 15:20 Temperature Pulse Rate 54 L 65 62 Respiratory Rate 14 14 14 Blood Pressure 133/77 133/77 139/82 Pulse Oximetry 96 100 98 Oxygen Delivery Simple Face Mask Nasal Cannula Nasal Cannula Oxygen Flow Rate 8 2 2 06/26/25 15:35 06/26/25 15:50 06/26/25 16:05 Temperature Pulse Rate 55 L 58 L 55 L Respiratory Rate 14 14 Blood Pressure 121/67 131/55 L 139/62 Pulse Oximetry 98 97 98 Oxygen Delivery Nasal Cannula Nasal Cannula Nasal Cannula Oxygen Flow Rate 2 2 2 06/26/25 16:20 06/26/25 17:05 06/26/25 17:20 Temperature 97.9 F 97.6 F Pulse Rate 55 L 61 58 L Respiratory Rate 14 16 16 Blood Pressure 111/60 118/60 110/62 Pulse Oximetry 97 95 Oxygen Delivery Nasal Cannula Oxygen Flow Rate 2 06/26/25 19:33 06/26/25 23:33 06/27/25 03:33 Temperature 97.7 F 98.2 F 97.8 F Pulse Rate 60 58 L 54 L Respiratory Rate 18 20 18 Blood Pressure 128/62 152/67 H 150/70 H Pulse Oximetry 97 97 98 Oxygen Delivery Oxygen Flow Rate 06/27/25 07:33 06/27/25 08:58 06/27/25 09:28 Temperature 98.1 F Pulse Rate 57 L 64 Respiratory Rate 16 Blood Pressure 148/75 H Pulse Oximetry 96 Oxygen Delivery Room Air Oxygen Flow Rate 06/27/25 10:34 06/27/25 11:33 Temperature 98.3 F Pulse Rate 59 L Respiratory Rate 15 Blood Pressure 147/75 H Pulse Oximetry 98 Oxygen Delivery Room Air Oxygen Flow Rate Intake/Output Intake/Output: Intake & Output 06/24/25 06/25/25 06/26/25 06/27/25 23:59 23:59 23:59 23:59 Intake Total 620 1088 Output Total 5 250 Balance 615 838 Meds/Results Medications: Active Medications Generic Name Dose Route Start Last Admin Trade Name Freq PRN Reason Stop Dose Admin Acetaminophen 1,000 mg 06/26/25 16:33 06/27/25 09:34 Acetaminophen 500 Mg Tablet PO 1,000 mg Q6H EFRAÍN Administration Al Hydrox/Mg Hydrox/Simethicone 20 ml 06/26/25 16:33 Mag Hydrox/Al Hydrox/Simeth 30 Ml Udc PO Q4H PRN Indigestion/Heartburn Albuterol 1 puff 06/26/25 16:33 Albuterol Sulfate (*Sp) Aerosol 1 Puff INHALATION Q6H PRN bronchospasm Amlodipine Besylate 10 mg 06/27/25 09:00 06/27/25 09:28 Amlodipine Besylate 10 Mg Tablet PO 10 mg DAILY EFRAÍN Administration Bisacodyl 10 mg 06/26/25 16:33 Bisacodyl 10 Mg Suppository RECTAL DAILY PRN Constipation Carbidopa/Levodopa 1 tablet 06/26/25 17:00 06/27/25 09:28 Carbidopa/Levodopa 25/100 Mg Tablet PO 1 tablet TID EFRAÍN Administration Cyclobenzaprine HCl 10 mg 06/26/25 16:33 06/27/25 09:29 Cyclobenzaprine Hcl 10 Mg Tablet PO 10 mg TID PRN Administration Muscle Spasms Docusate Sodium 100 mg 06/26/25 21:00 06/27/25 09:28 Docusate Sodium 100 Mg Capsule PO 100 mg Q12HR EFRAÍN Administration Ferrous Sulfate 325 mg 06/27/25 09:00 06/27/25 09:29 Ferrous Sulfate [address] BY MOUTH 325 mg DAILY EFRAÍN Administration Gabapentin 600 mg 06/26/25 17:00 06/27/25 09:28 Gabapentin 300 Mg Capsule PO 600 mg TID EFRAÍN Administration Hydrochlorothiazide 12.5 mg 06/27/25 09:00 06/27/25 09:28 Hydrochlorothiazide 12.5 Mg Capsule PO 12.5 mg DAILY EFRAÍN Administration Cefazolin Sodium 2 gm in 50 mls @ 100 mls/hr 06/26/25 19:00 06/27/25 11:05 Ancef 2 Gm/D5w 50 Ml IVPB 100 mls/hr Q8H EFRAÍN Administration Losartan Potassium 50 mg 06/27/25 09:00 06/27/25 09:28 Losartan Potassium 50 Mg Tablet PO 50 mg DAILY EFRAÍN Administration Metoprolol Succinate 25 mg 06/27/25 09:00 06/27/25 09:28 Metoprolol Succinate Ext Rel 25 Mg Tabcr PO 25 mg DAILY EFRAÍN Administration Miscellaneous Information 1 each 06/26/25 00:01 06/27/25 07:53 Quilpta Nonformulary. Can Patient Use From Home Or Hold Till Discharge? XX 07/26/25 00:00 Not Given CLARIFY PENDING SALE TO [facility] Morphine Sulfate 2 mg 06/26/25 16:33 Morphine Sulfate (*Crx) 2 Mg/Ml Inj IV PUSH Q2H PRN Breakthrough Pain Non-Formulary Medication 60 mg 06/26/25 16:33 Atogepant [Qulipta] PO DAILY PRN migraine headache Ondansetron HCl 4 mg 06/26/25 16:33 Ondansetron Inj 4 Mg/2 Ml Vial IV PUSH Q8H PRN Nausea And Vomiting Oxycodone HCl 10 mg 06/26/25 16:33 06/27/25 06:44 Oxycodone Hcl (*Crx) 5 Mg Tab Ir PO 10 mg Q4H PRN Administration Pain Rated 7-10 Oxycodone HCl 5 mg 06/26/25 16:33 Oxycodone Hcl (*Crx) 5 Mg Tab Ir PO Q4H PRN Pain Rated 4-6 Prazosin HCl 2 mg 06/26/25 18:00 06/26/25 17:25 Prazosin Hcl 1 Mg Capsule PO 2 mg QPM EFRAÍN Administration Senna/Docusate Sodium 1 tab 06/26/25 16:33 Senna/Docusate Sodium Tablet PO HS PRN Constipation Simvastatin 20 mg 06/27/25 09:00 06/27/25 09:28 Simvastatin 20 Mg Tablet PO 20 mg DAILY PENDING SALE TO [facility] Administration Tamsulosin HCl 0.4 mg 06/27/25 09:00 06/27/25 09:29 Tamsulosin Hcl 0.4 Mg Capsule PO 0.4 mg DAILY PENDING SALE TO [facility] Administration Vitamin D 50 mcg 06/27/25 09:00 06/27/25 09:28 Cholecalciferol (Vitamin D3) 25 Mcg (1,000 Units) Tablet PO 50 mcg DAILY EFRAÍN Administration
[2025-06-27 15:33] VITALS: BP 148/75; PULSE 65; RESP 17; TEMP 36.6; O2SAT 97
[2025-06-27] MEDS: PRAZOSIN HCL 1 MG CAPSULE 2 MG PO (17:07)
[2025-06-27 19:33] VITALS: BP 117/67; PULSE 56; RESP 16; TEMP 36.2; O2SAT 95
[2025-06-28] MEDS: ceFAZolin 2 GM/D5W 50 ML 2 GM/50 ML BAG IVPB (03:50)
[2025-06-28] MEDS: ACETAMINOPHEN 500 MG TABLET 1000 MG PO ×2 (05:01→08:51)
[2025-06-28 06:09] VITALS: BP 157/77; PULSE 85; RESP 18; TEMP 36.3; O2SAT 98
[2025-06-28 08:48] VITALS: PULSE 69
[2025-06-28] MEDS: METOPROLOL SUCCINATE EXT REL 25 MG TABCR PO (08:48)
[2025-06-28] MEDS: DOCUSATE SODIUM 100 MG CAPSULE PO (08:48)
[2025-06-28] MEDS: CARBIDOPA/LEVODOPA 25/100 MG TABLET 1 TABLET PO (08:48)
[2025-06-28] MEDS: FERROUS SULFATE 325 MG TABLET DR BY MOUTH (08:50)
[2025-06-28] MEDS: GABAPENTIN 300 MG CAPSULE 600 MG PO (08:50)
[2025-06-28] MEDS: CHOLECALCIFEROL (VITAMIN D3) 25 MCG (1,000 UNITS) TABLET 50 MCG PO (08:50)
[2025-06-28] MEDS: LOSARTAN POTASSIUM 50 MG TABLET PO (08:50)
[2025-06-28] MEDS: TAMSULOSIN HCL 0.4 MG CAPSULE PO (08:51)
[2025-06-28] MEDS: SIMVASTATIN 20 MG TABLET PO (08:51)
--- NOTE | 2025-07-04 16:22 | PM.DS ---
DS: Admitting Diagnosis Discharge Date 06/28/25 Admitting Diagnosis cervical myelopathy DS: Discharge Diagnosis Discharge Diagnosis (1) Status post cervical arthrodesis: Code(s): Z98.1 - Arthrodesis status Status: Acute DS: Summary Hospital Course Hospital Course: Mr. Garcia presented on June 26 for surgery. Please see the operative note for more details. He was transferred to the floor after surgery. He worked with Physical therapy who cleared him for home. His Hemovac drain was removed on postoperative day 2. He was tolerating oral intake, voiding independently, and ambulating independently. His pain was adequately controlled with oral medications by postoperative day 2. He was discharged home on postoperative day 2. Time Spent with Patient Time attestation: Total time spent providing and/or coordinating discharge services: Discharge Plan Discharge Consulting providers: Elizabeth Liao; Jillian Swan; Marco Antonio Muller Discharging Clinician: Blanca Porter Patient Disposition: Home Activity: other - see discharge instructions Diet: as tolerated Wound Care Instructions: follow printed instructions Patient Instructions: Antibiotic Form Patient Language: [place] Stand Alone Forms: General Discharge Information Follow-up/Referrals: Blanca Porter MD [Physician, Neurosurgery] Discharge Medications: New sennosides-docusate sodium [Senokot-S] 8.6-50 mg Tablet 1 tab-cap PO BID Qty: 14 0RF oxycodone 5 mg Tablet 5 mg PO Q4H PRN (Reason: pain) 7 Days Qty: 42 0RF cyclobenzaprine 10 mg Tablet 10 mg PO TID PRN (Reason: Muscle Spasms) 10 Days Qty: 30 0RF Continued gabapentin 600 mg tablet 600 mg PO TID cholecalciferol (vitamin D3) 50 mcg (2,000 unit) capsule 50 mcg PO DAILY simvastatin 20 mg tablet 20 mg PO DAILY acetaminophen 500 mg capsule 500 mg PO Q6H PRN (Reason: pain) carbidopa-levodopa 25-100 mg tablet 1 tablet PO TID Qty: 120 11RF albuterol sulfate 90 mcg/actuation HFA aerosol inhaler 1 puff INHALATION Q6H PRN (Reason: bronchospasm) amlodipine 10 mg tablet 10 mg PO DAILY ferrous sulfate [FeroSul] 325 mg (65 mg iron) tablet 325 mg PO DAILY losartan 50 mg tablet 50 mg PO DAILY tamsulosin 0.4 mg capsule 0.4 mg PO .am metoprolol succinate 25 mg tablet extended release 24 hr 25 mg PO DAILY prazosin 2 mg capsule 2 mg PO QPM hydrochlorothiazide 12.5 mg capsule 12.5 mg PO .day Qulipta 60 mg tablet 60 mg PO DAILY PRN (Reason: migraine headache) Held tramadol 50 mg tablet 50 mg PO Q6H PRN (Reason: pain) Hold Instructions: Resume on 07/04/25. Do not resume this until after your post-operative pain medication has run out aspirin [Adult Aspirin Regimen] 81 mg tablet,delayed release (DR/EC) 81 mg PO DAILY Hold Instructions: Resume on 07/03/25. Patient Comments: Last dose is 7 days prior to surgery Date of admission: 06/26/25 16:33 Primary Care Provider: Eneida,Michele eBcker Admitting Provider: Blanca Porter Attending physician on admission: Blanca Porter Condition: Stable
== END 2025-06-28 10:51 | disposition home or self-care (01) | DRG 472 ==
LOC: ANH3MEDSUR 16:35
PROVIDERS: Admitting Provider Neurological Surgery; PCP Family Medicine; Visit Provider Neurological Surgery
PROC: 0RG2071 Fusion of 2 or more Cervical Vertebral Joints with Autologous Tissue Substitute, Posterior Approach, Posterior Column, Open Approach (ICD-10-PCS; principal; 2025-06-26 11:00)
DX: M43.12 Spondylolisthesis, cervical region (principal); G95.9 Disease of spinal cord, unspecified; G20.A1 Parkinson's disease without dyskinesia, without mention of fluctuations; G47.52 REM sleep behavior disorder; R29.6 Repeated falls; Z96.649 Presence of unspecified artificial hip joint; Z79.82 Long term (current) use of aspirin
CPT/HCPCS: 97116; 97161; 97166; 97530; 97535; 99199; J0690; A9270; J1100; J1171; J2250; J2405; J2704; J3010; J7120

== ENCOUNTER 2025-09-24 09:55 | Outpatient (CLI) | payer MEDICARE, SELFPAY ==
--- NOTE | ~2025-09-24 | XR_ITS ---
[id number] Indication: Z98.1 - Arthrodesis status, FOLLOW UP FROM SURGERY Comparison: None Findings: Posterior fixation of C2, C3 and C4, no fracture is identified. Severe loss of disc height throughout. Soft tissues unremarkable Impression: No acute abnormality. Reviewed, dictated and finalized at location [facility] Impression: No acute abnormality.
--- OUTSIDE RECORDS SUMMARY | 2025-09-24 08:55 | XMS_ITS | Encounter Summary ---
Author Organization [facility] Healthcare Address [address] [place] [address] Care Team Providers Care Yoga Coordinator Name Role Phone Michele Monique MD Primary Care Provider [phone] Bernardo Henriquez MD Unavailable [phone] Encounter Details Date Type Department Care Team (Late st Contact Info) Description 09/24/2025 8:55 AM PNEUMATIC HOIST OPERATOR Lab [facility] [address] [place] [address] Arrived Social History Tobacco Use Types Packs/Day Years Used Date Smoking Tobacco: Former Cigarettes Q uit: 1970 AUDIT-C Answer Date Recorded Q1: How often do you have a drink containing alc ohol? Never 01/10/2023 Average Number of Drinks Not on file 023 Frequency of Binge Drinking Not on file 12/16 Personal Safety Answer Date Recorded Have you ever been in or are you currently in a harmful physical or emotional relationship or is someone making you feel afraid or unsafe? Denies 05/06/2025 Sex and Gender Information Value Date Recorded Sex Assigned at Not on file Legal Sex Male 2:49 AM PNEUMATIC HOIST OPERATOR Gender Identity Not on file Sexual Orientation Not on file documented as of this encounter Plan of Treatment Not on file documented as of this encounter Procedures Procedure Name Priority Date/Time Associated Diagnosis Comments EGFR Routine 09/24/2025 8:57 AM PNEUMATIC HOIST OPERATOR DIFFERENTIAL AUTO Routine 09/24/2025 8:5 7 AM PNEUMATIC HOIST OPERATOR IRON PROFILE W/ IBC Routine 09/24/2025 8 :57 AM PNEUMATIC HOIST OPERATOR CBC WITH AUTO DIFFERENTIAL Routine 09/24/2025 8:57 AM PNEUMATIC HOIST OPERATOR PTH Routine 09/24/2025 8:57 AM PNEUMATIC HOIST OPERATOR FERRITIN Routine 09/24/2025 8:57 AM PNEUMATIC HOIST OPERATOR RENAL FUNCTION PANEL Routine 09/24/2025 8:57 AM PNEUMATIC HOIST OPERATOR documented in this encounter Results * eGFR (09/24/2025 8:57 AM PNEUMATIC HOIST OPERATOR) eGFR 62 >=60 mL/min/1. 73 m2 Comment: Interpretive Data Reference Interval Normal >/= 90 mL/min/1.73m2 Mildly decreased* 60 - 89 mL/min/1.73m2 Mildly to moderately decreased 45 - 59 mL/min/1.73m2 Moderately to severely decreased 30 - 44 mL/min/1.73m2 Severely decreased 15 - 29 mL/min/1.73m2 Kidney Failure < 15 mL/min/1.73m2 *Relative to young adult level Estimated glomerular filtration rate is determined by the 2020 CKD-EPI equation recommended by the National Kidney Foundation (A Unifying Approach to GFR Estimation: Recommendations of the NKF-ASK Task Force on Reassessing the Inclusion of Race in Diagnosing Kidney Disease, JASN 2020). The CKD-EPI equation should not be used for patients with unstable renal function and has not been validated in children and those over 70. Current interpretive data was last reviewed 2021. Blood 09/24/2025 8:57 AM PNEUMATIC HOIST OPERATOR 09/24/2025 9:08 AM PNEUMATIC HOIST OPERATOR us Farheen iWse CUSTODIAL AIDE LAB BLOOD ORDERABLES Final R esult SEVEN [address] [facility] Department [place] [address] * Differential, auto (09/24/2025 8:57 AM PNEUMATIC HOIST OPERATOR) Pathologist [facility] Neutrophil abs 3.14 1.50 - 6.50 K/cumm Imm gran abs 0.01 0.00 - 0.10 K/cumm [facility] Lymphocyte abs 1.60 0.80 - 3.30 K/cumm [facility] Monocyte abs 0.38 0.20 - 0.80 K/cumm [facility] Eosinophil abs 0.10 0.00 - 0.50 K/cumm [facility] Basophil abs 0.03 0.00 - 0.10 K/cumm [facility] Neutrophil pct 59.7 % [facility] Comment: Interpretive Data Percent cell count reference ranges are not reported, since discordance with absolute values may lead to misinterpretation of CBC data. Current Interpretive Data was last revised on 2018. Imm gran pct 0.2 % [facility] Comment: Interpretive Data Percent cell count reference ranges are not reported, since discordance with absolute values may lead to misinterpretation of CBC data. Current Interpretive Data was last revised on 2018. Lymphocyte pct 30.4 % [facility] Comment: Interpretive Data Percent cell count reference ranges are not reported, since discordance with absolute values may lead to misinterpretation of CBC data. Current Interpretive Data was last revised on 2018. Monocyte pct 7.2 % [facility] Comment: Interpretive Data Percent cell count reference ranges are not reported, since discordance with absolute values may lead to misinterpretation of CBC data. Current Interpretive Data was last revised on 2018. Eosinophil pct 1.9 % [facility] Comment: Interpretive Data Percent cell count reference ranges are not reported, since discordance with absolute values may lead to misinterpretation of CBC data. Current Interpretive Data was last revised on 2018. Basophil pct 0.6 % [facility] Comment: Interpretive Data Percent cell count reference ranges are not reported, since discordance with absolute values may lead to misinterpretation of CBC data. Current Interpretive Data was last revised on 2018. Blood 09/24/2025 8:57 AM PNEUMATIC HOIST OPERATOR 09/24/2025 9:08 AM PNEUMATIC HOIST OPERATOR Farheen Wise NP LAB BLOOD ORDERABLES Final R esult SEVEN [address] [place] [address] * Renal function panel (09/24/2025 8:57 AM PNEUMATIC HOIST OPERATOR) [facility] Sodium 142 135 - 145 mmol/L Potassium, pl 3.8 3.3 - 4.9 mmol/L [facility] Chloride 104 97 - 110 mmol/L [facility] CO2 32 22 - 32 mmol/L [facility] Anion gap 6 2 - 15 mmol/L [facility] BUN 15 6 - 25 mg/dL [facility] Creatinine 1.25 0.80 - 1.30 mg/dL [facility] Glucose 120 70 - 199 mg/dL [facility] Comment: Interpretive Data Fasting glucose >/= 126 mg/dl is diagnostic for diabetes. Fasting is defined as no caloric intake for at least 8 hours. Fasting glucose between 100 mg/dl to 125 mg/dl is diagnostic of prediabetes. In a patient with classic symptoms of hyperglycemia or hyperglycemic crisis, a random glucose >/= 200 mg/dl is diagnostic for diabetes. In the absence of unequivocal hyperglycemia, results should be confirmed by repeat testing. The classification and Diagnosis of Diabetes Diabetes Care 2021; 46: S19-S40. Current interpretive data was last revised 2022. Calcium 9.2 8.5 - 10.3 mg/dL [facility] Phosphorus, pl 3.9 2.3 - 4.5 mg/dL [facility] Albumin 4.0 3.5 - 5.0 g/dL [facility] Blood 09/24/2025 8:57 AM PNEUMATIC HOIST OPERATOR 09/24/2025 9:08 AM PNEUMATIC HOIST OPERATOR us Farheen Wise CUSTODIAL AIDE LAB BLOOD ORDERABLES Final R esult Performing Organization Address City/[facility]/ZIP Co de Phone Number [address] [place] [address] * (ABNORMAL) PTH (09/24/2025 8:57 AM PNEUMATIC HOIST OPERATOR) [facility] PTH 79(H) 18 - 59 pg/mL Blood 09/24/2025 8:57 AM PNEUMATIC HOIST OPERATOR 09/24/2025 9:08 AM PNEUMATIC HOIST OPERATOR Farheen Wise CUSTODIAL AIDE LAB BLOOD ORDERABLES Final R esult Performing Organization Address [facility] Co de Phone Number [address] [address] * (ABNORMAL) Iron profile w/ IBC (09/24/2025 8:57 AM PNEUMATIC HOIST OPERATOR) Pathologist [facility] Iron 43(L) 50 - 150 mcg/dL TIBC 315 250 - 400 mcg/dL [facility] Transferrin saturation 14(L) 20 - 50 % [facility] Blood 09/24/2025 8:57 AM PNEUMATIC HOIST OPERATOR 09/24/2025 9:08 AM PNEUMATIC HOIST OPERATOR us Farheen Wise CUSTODIAL AIDE LAB BLOOD ORDERABLES Final R esult Performing Organization Address [facility] Co de Phone Number [address] [place] [address] * Ferritin (09/24/2025 8:57 AM PNEUMATIC HOIST OPERATOR) Pathologist [facility] Ferritin 135 30 - 400 ng/mL Blood 09/24/2025 8:57 AM PNEUMATIC HOIST OPERATOR 09/24/2025 9:08 AM PNEUMATIC HOIST OPERATOR Farheen Wise CUSTODIAL AIDE LAB BLOOD ORDERABLES [facility] Performing Organization Address [facility] Co de Phone Number [address] [place] [address] * CBC with auto differential (09/24/2025 8:57 AM PNEUMATIC HOIST OPERATOR) Pathologist [facility] WBC 5.26 3.80 - 9.90 K/cumm Hgb 13.2 13.0 - 17.5 g/dL [facility] Hct 40.8 38.9 - 50.3 % [facility] Plt 210 150 - 400 K/cumm [facility] MPV 9.7 9.1 - 12.3 fL [facility] RBC 4.54 4.30 - 5.80 M/cumm [facility] MCV 89.9 81.3 - 96.4 fL [facility] MCH 29.1 27.1 - 33.3 pg SEVEN MCHC 32.4 32.3 - 35.7 g/dL [facility] RDW CV 14.0 11.1 - 14.9 % [facility] RDW SD 45.7 35.7 - 48.1 fL [facility] NRBC abs 0.00 0.00 - 0.01 K/cumm [facility] Blood 09/24/2025 8:57 AM PNEUMATIC HOIST OPERATOR 09/24/2025 9:08 AM PNEUMATIC HOIST OPERATOR us Farheen Wise CUSTODIAL AIDE LAB BLOOD ORDERABLES Final R esult SEVEN [address] [facility] Department [place] [address] documented in this encounter Visit Diagnoses Not on filedocumented in this encounter Care Teams Yoga Coordinator Relationship Specialty Start Date End Date Michele Monique MD [address] [address] PCP - General 12/06/19 Bernardo Henriquez MD [address] [address] Consulting Physician Plastic Surgery 01/25/23 documented as of this encounter
--- OUTSIDE RECORDS SUMMARY | 2025-09-24 10:27 | XMS_ITS | Clinical Summary ---
Author Organization [facility] [employer] Address [address] [place] [address] Care Team Providers Care Manager Telemetry Name Role Phone Michele Monique MD Primary Care Provider [phone] Source Comments [facility] [employer],non-owned Affiliates and Associated Physician Practices is amultiple site organization consisting of ambulatory clinics and hospital sitesin [place], [place], [place] and [place]. This disclosure is being madepursuant to the Care Everywhere program and may not contain all information available regarding this patient. 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 Gender Identity Not on file Sexual Orientation Not on file Last Filed Vital Signs Vital Sign Reading Time Taken Comments Blood Pressure 138/82 01/29/2015 8:50 AM CDT Pulse 68 01/29/2015 8:50 AM CDT Temperature - - Respiratory Rate 17 01/29/2015 8:50 AM CDT Oxygen Saturation - - Inhaled Oxygen Concentration - - Weight 104.3 kg (230 lb) 03/04/2015 9:17 AM CDT Height 177.8 cm (5' 10) 03/04/2015 9:17 AM CDT Body Mass Index 33 03/04/2015 9:17 AM CDT Plan of Treatment Health Maintenance Due Date Last Done Comments [place] (AGES 45-75) - COL ON CA SCREENING 1954 COLON MONITORING 1954 COLONOSCOPY - COLON CA SCREENING 1954 CT COLONOGRAPHY - COLON CA SCREENING 1954 Colorectal Cancer Screening 1954 FIT - COLON CA SCREENING 1954 FLEX SIG - COLON CA SCREENING 1954 LIPID TESTING 1954 HEPATITIS C SCREENING 07/21/1972 DTAP/TDAP/TD VACCINES (1 - Tdap) 1973 PNEUMOCOCCAL VACCINE 50+ (1 of 1 - PCV) 2004 ZOSTER VACCINE (1 of 2) 2004 DEPRESSION SCREENING 11/14/2024 COVID-19 VACCINE (1 - 2023-2 5 season) 2025 INFLUENZA VACCINE (#1) 2025 Respiratory Syncytial Virus (RSV) Vaccine Pt: or over 60 yrs (1 - 1-dose 75+ series) 2029 HEPATITIS B VACCINE Aged Out No longe r eligible based on patient's age to complete this topic HIB VACCINE Aged Out No longer eligi ble based on patient's age to complete this topic HPV VACCINE Aged Out No longer eligi ble based on patient's age to complete this topic MENINGOCOCCAL (Group B) VACC INE SHARED DECISION-MAKING Aged Out No longer eligibl e based on patient's age to complete this topic MENINGOCOCCAL GROUPS A/C/Y/W VACCINE Aged Out No longer eligible b ased on patient's age to complete this topic Care Teams Manager Telemetry Relationship Specialty Start Date End Date Michele Monique MD PCP - General 01/24/15
--- OUTSIDE RECORDS SUMMARY | 2025-09-24 10:27 | XMS_ITS | Clinical Summary ---
Author Organization [facility] Address [address] [place] [address] Care Team Providers Care Personal Lines Sales Executive Name Role Phone Michele Monique MD Primary Care Provider [phone] Bernardo Henriquez MD Unavailable [phone] Allergies Active Allergy Reactions Criticality Noted Date Comments Cyclobenzaprine Other (See comments) Low 06/13/2021 Shrimp Angioedema High 11/20/2021 Tramadol Other (See comments),Stomach upset Low 01/29/2015 Stomach/GI Upset shaking Medications famotidine (PEPCID) 20 mg tablet Take 1 tablet (20 mg total) by mouth 2 (two) times a day for 15 days 30 tablet 1 Active diphenhydrAMINE (diphenhydrAMIN E) 25 mg capsule Take 1 tablet/capsule (25 mg total) by mouth every 6 (six) hours as needed (allergic reaction) 20 capsule 1 Active EPINEPHrine (EpiPen) 0.3 mg/0.3 mL auto-injection syringeIndicati ons:Anaphylaxis Inject 0.3 mL (0.3 mg total) into the muscle as instructed as needed for anaphylaxis 2 each 1 Active traMADoL (ULTRAM) 50 mg tablet Take 1 tablet (50 mg total) by mouth every 8 (eight) hours as needed for pain Active gabapentin (NEURONTIN) 600 mg tablet Take 1 tablet (600 mg total) by mouth 3 (three) times a day Active furosemide (LASIX) 20 mg tablet Take 1 tablet (20 mg total) by mouth daily as needed Active naproxen (NAPROSYN) 375 mg tablet Take 1 tablet (375 mg total) by mouth 2 (two) times a day with meals Active carbidopa-levod opa (SINEMET) 25-100 mg per tabletIndicatio ns:Parkinsonism Take 2 tablets by mouth 2 (two) times a day Active simvastatin (ZOCOR) 20 mg tablet Take 1 tablet (20 mg total) by mouth nightly Active aspirin 81 mg enteric coated tablet Take 1 tablet (81 mg total) by mouth daily Active amLODIPine (NORVASC) 5 mg tablet Take 1 tablet (5 mg total) by mouth daily Active tamsulosin (FLOMAX) 0.4 mg extended release capsule 0.4 mg healthcare science specialist before breakfast Active tiZANidine (ZANAFLEX) 2 mg tablet Take 1 tablet (2 mg total) by mouth every 6 (six) hours as needed for muscle spasms 30 tablet 4 Active Additional Information Patient not taking.Reported on 08/13/2025 acetaminophen (TYLENOL) 500 mg tablet Take 2 tablets (1,000 mg total) by mouth every 6 (six) hours as needed for pain 30 tablet 4 Active ibuprofen (ADVIL,MOTRIN) 400 mg tablet Take 1 tablet (400 mg total) by mouth every 6 (six) hours as needed for pain 30 tablet 4 Active Additional Information Patient not taking.Reported on 08/13/2025 metoprolol XL (TOPROL-XL) 25 mg extended release tablet Take 0.5 tablets (12.5 mg total) by mouth daily 4 Active omega 0-sgy-umr-fish oil 300 mg (120 mg- 180mg)-1,000 mg capsule Take 1 capsule by mouth 2 (two) times a day 5 Active magnesium oxide (MAG-OX) 400 mg (241.3 mg elemental magnesium) tablet Take 1 tablet (400 mg total) by mouth daily 5 Active cholecalciferol (VITAMIN D-3) 2000 unit capsule Take 1 capsule (2,000 Units total) by mouth daily 5 Active ferrous sulfate 325 mg (65 mg of elemental iron) tablet Take 1 tablet (325 mg total) by mouth 5 03/28/20 26 Active prazosin (MINIPRESS) 2 mg capsule TAKE 1 CAPSULE BY MOUTH EVERY DAY AT BEDTIME 5 Active amLODIPine (NORVASC) 10 mg tablet Take 1 tablet (10 mg total) by mouth daily 5 Active hydroCHLOROthia zide (MICROZIDE) 12.5 mg capsule Take 1 capsule (12.5 mg total) by mouth daily Active lidocaine (LIDODERM) 5 % Place 1 patch on the skin daily for 12 hours for 7 days Remove & discard patch within 12 hours or as directed by MD. 7 patch Active Additional Information Patient not taking.Reported on 08/13/2025 albuterol HFA (PROVENTIL HFA,VENTOLIN HFA,PROAIR HFA) 90 mcg/actuation inhaler Inhale 2 puffs 2 (two) times a day 5 Active Stimulant Laxative Plus 8.6-50 mg TAKE 1 TABLET BY MOUTH TWICE DAILY FOR CONSTIPATION 5 Active triamcinolone (KENALOG) 0.1 % cream APPLY TOPICALLY TO THE AFFECTED AREA EVERY DAY NEEDED FOR ECZEMA 5 Active losartan (COZAAR) 50 mg tablet Take 1 tablet (50 mg total) by mouth daily 5 Active Active Problems Problem Noted Date Diagnosed Date Sleep disorder 08/13/2025 Restrictive lung disease 04/30/2025 BMI 31.0-31.9,adult 01/29/2025 MITCHELL (obstructive sleep apnea) 01/29/2025 Cigarette nicotine dependence in remission 01/29 Hypogonadism in male 07/11/2024 [place]'s disease 07/11/2024 Benign prostatic hyperplasia 07/11/2024 Chronic obstructive pulmonary disease 07/11/2024 Depressive disorder 07/11/2024 Low back pain 07/11/2024 Obesity 07/11/2024 Psoriasis 07/11/2024 Psychosis 07/11/2024 Secondary hyperparathyroidism 01/04/2024 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 Overview (01/10/2023): Added automatically from request for surgery [id number] Stage 3b chronic kidney disease 01/25/2022 Dyslipidemia 06/01/2017 Bilateral lower extremity edema 06/01/2017 Essential hypertension 01/26/2017 Asthma 01/19/2017 Parkinson's disease 01/19/2017 Encounters Date Type Department Care Team Description 09/24/2025 8:55 AM BOTTLE MACHINE OPERATOR Lab [facility] [address] [place] [address] Arrived 08/21/2025 10:15 AM CDT Therapy [facility] OP Physical Therapy [address] [place] [phone] Mirna Worley, PT Neck pain (Primary Dx) 08/19/2025 10:00 AM CDT Therapy [facility] Physical Therapy [address] [place] [phone] Michelle Mccoy, SHERRI Neck pain (Primary Dx) 08/14/2025 Documentation [facility] Physical Therapy [address] [place] [phone] Awa Harrison, AUTO WINDER No Show 08/13/2025 8:30 AM CDT Office Visit [facility] [address] [place] [id number] Teja Trevizo MD Simple chronic bronchitis (HCC) (Primary Dx); [place]'s disease (HCC); Cigarette nicotine dependence in remission; Restrictive lung disease; BMI 31.0-31.9,adult; Bilateral lower extremity edema; Sleep disorder 08/12/2025 10:45 AM CDT Therapy [facility] Physical Therapy [address] [place] [phone] Dora Estrada, AUTO WINDER Neck pain (Primary Dx) 08/08/2025 9:15 AM CDT Therapy [facility] Physical Therapy [address] [place] [phone] Matt Arriaga, AUTO WINDER Neck pain (Primary Dx) 08/05/2025 10:45 AM CDT Therapy [facility] Physical Therapy [address] [place] [phone] Michelle Mccoy, AUTO WINDER Neck pain (Primary Dx) 08/01/2025 9:15 AM CDT Therapy [facility] Physical Therapy [address] [place] [phone] Geneva Harmon, AUTO WINDER Neck pain (Primary Dx) 07/30/2025 9:15 AM CDT Therapy [facility] Physical Therapy [address] [place] [phone] Dora Estrada, AUTO WINDER Neck pain (Primary Dx) 07/24/2025 8:30 AM CDT Therapy [facility] Physical Therapy [address] [place] [phone] Michelle Mccoy, AUTO WINDER Neck pain (Primary Dx) 07/22/2025 8:30 AM CDT Therapy [facility] Physical Therapy [address] [place] [phone] Dora Estrada, AUTO WINDER Neck pain (Primary Dx) 07/18/2025 12:45 PM CDT Therapy [facility] Physical Therapy [address] [place] [phone] Mirna Worley, PT Neck pain (Primary Dx) 07/18/2025 Plan of Care Documentation [facility] Physical Therapy [address] [place] [phone] from Last 3 Months Surgical History Surgery Date Site/Laterality Comments HIP SURGERY 11/14/2016 - 11/13/2017 Medical History Medical History Date Comments Hypertension Social History Tobacco Use Types Packs/Day Years Used Date Smoking Tobacco: Former Cigarettes Q uit: 1970 Tobacco Cessation:Counseling Given: Not Answered AUDIT-C Answer Date Recorded Q1: How often [...] on file 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 Gender Identity Not on file Sexual Orientation Not on file Last Filed Vital Signs Vital Sign Reading Time Taken Comments Blood Pressure 145/83 08/13/2025 8:13 AM CDT Pulse 57 08/13/2025 8:13 AM CDT Temperature 36.3 C (97.3 F) 08/13/2025 8:13 AM CDT Respiratory Rate 18 08/13/2025 8:13 AM CDT Oxygen Saturation 97% 08/13/2025 8:13 AM CDT Inhaled Oxygen Concentration - - Weight 93.5 kg (206 lb 3.2 oz) 08/13/2025 8:13 A M CDT Height 172.7 cm (5' 8) 08/13/2025 8:13 AM CDT Body Mass Index 31.35 08/13/2025 8:13 AM CDT Plan of Treatment Health Maintenance Due Date Last Done Comments Colon Cancer Screening-Colonoscopy 1954 Depression Screening 1954 Fall Risk Assessment 1954 Hepatitis C Screening 1954 Prostate Cancer Screening-PSA 1954 Hepatitis B Screening 1972 Zoster Vaccine (1 of 2) 2004 Abdominal Aortic Aneurysm (A AA) Screen 2019 12/26/2016 Well Visit 65+ 2019 Pneumococcal vaccine 65+ (2 of 2 - PPSV23, PCV20, or PCV21) 11/27/2019 11/27/2019, 10/02/2019, 10/02/2019 Influenza Vaccine (#1) 2025 0, 10/02/2019, 08/01/2017, Additional history exists DTaP/Tdap/Td Vaccine (2 - Td or Tdap) 01/14/2026 01/15/2016 Colon Cancer Screening-FIT Discontinued 12/26/2016 Procedures Procedure Name Priority Date/Time Associated Diagnosis Comments EGFR Routine 09/24/2025 8:57 AM BOTTLE MACHINE OPERATOR DIFFERENTIAL AUTO Routine 09/24/2025 8:5 7 AM BOTTLE MACHINE OPERATOR RENAL FUNCTION PANEL Routine 09/24/2025 8:57 AM BOTTLE MACHINE OPERATOR PTH Routine 09/24/2025 8:57 AM BOTTLE MACHINE OPERATOR IRON PROFILE W/ IBC Routine 09/24/2025 8 :57 AM BOTTLE MACHINE OPERATOR FERRITIN Routine 09/24/2025 8:57 AM BOTTLE MACHINE OPERATOR CBC WITH AUTO DIFFERENTIAL Routine 09/24/2025 8:57 AM BOTTLE MACHINE OPERATOR OCCULT BLOOD, FECAL (FIT) Routine 12/26/2016 2:23 PM BOTTLE MACHINE OPERATOR CT ABDOMEN PELVIS W CONTRAST Routine 12/26/2016 12:00 AM BOTTLE MACHINE OPERATOR from Last 3 Months or Most Recently Relevant to Health Maintenance Results * eGFR (09/24/2025 8:57 AM BOTTLE MACHINE OPERATOR) eGFR 62 >=60 mL/min/1. 73 m2 [...] of Race in Diagnosing Kidney Disease, JASN 202). The CKD-EPI equation should not be used for patients with unstable renal function and has not been validated in children and those over 70. Current interpretive data was last reviewed 2021. Blood 09/24/2025 8:57 AM BOTTLE MACHINE OPERATOR 09/24/2025 9:08 AM BOTTLE MACHINE OPERATOR us Farheen Stephanie Wise EPIC APPLICATION COORDINATOR LAB BLOOD ORDERABLES Final R esult [facility] [address] Department [place] [address] * Differential, auto (09/24/2025 8:57 AM BOTTLE MACHINE OPERATOR) Neutrophil abs 3.14 1.50 - 6.50 K/cumm Imm gran abs 0.01 0.00 - 0.10 K/cumm [facility] Lymphocyte abs 1.60 0.80 - 3.30 K/cumm [facility] Monocyte abs 0.38 0.20 - 0.80 K/cumm [facility] Eosinophil abs 0.10 0.00 - 0.50 K/cumm [facility] Basophil abs 0.03 0.00 - 0.10 K/cumm [facility] Neutrophil pct 59.7 % [facility] Comment: Interpretive Data Percent cell count reference ranges are not reported, since discordance with absolute values may lead to misinterpretation of CBC data. Current Interpretive Data was last revised on 2018. Imm gran pct 0.2 % [facility] Comment: Interpretive Data Percent cell count reference ranges are not reported, since discordance with absolute values may lead to misinterpretation of CBC data. Current Interpretive Data was last revised on 2018. Lymphocyte pct 30.4 % [facility] Comment: Interpretive Data Percent cell count reference ranges are not reported, since discordance with absolute values may lead to misinterpretation of CBC data. Current Interpretive Data was last revised on 2018. Monocyte pct 7.2 % [facility] Comment: Interpretive Data Percent cell count reference ranges are not reported, since discordance with absolute values may lead to misinterpretation of CBC data. Current Interpretive Data was last revised on 2018. Eosinophil pct 1.9 % [facility] Comment: Interpretive Data Percent cell count reference ranges are not reported, since discordance with absolute values may lead to misinterpretation of CBC data. Current Interpretive Data was last revised on 2018. Basophil pct 0.6 % [facility] Comment: Interpretive Data Percent cell count reference ranges are not reported, since discordance with absolute values may lead to misinterpretation of CBC data. Current Interpretive Data was last revised on 2018. Blood 09/24/2025 8:57 AM BOTTLE MACHINE OPERATOR 09/24/2025 9:08 AM BOTTLE MACHINE OPERATOR us Farheen Wise EPIC APPLICATION COORDINATOR LAB BLOOD ORDERABLES Final R esult Performing Organization Address [facility] Co de Phone Number [address] [place] [address] * (ABNORMAL) Iron profile w/ IBC (09/24/2025 8:57 AM BOTTLE MACHINE OPERATOR) Pathologist [facility] Iron 43(L) 50 - 150 mcg/dL TIBC 315 250 - 400 mcg/dL [facility] Transferrin saturation 14(L) 20 - 50 % [facility] Blood 09/24/2025 8:57 AM BOTTLE MACHINE OPERATOR 09/24/2025 9:08 AM BOTTLE MACHINE OPERATOR us Farheen Wise EPIC APPLICATION COORDINATOR LAB BLOOD ORDERABLES Final R esult Performing Organization Address [facility] de Phone Number [address] [place] [address] * CBC with auto differential (09/24/2025 8:57 AM BOTTLE MACHINE OPERATOR) [facility] WBC 5.26 3.80 - 9.90 K/cumm Hgb 13.2 13.0 - 17.5 g/dL [facility] Hct 40.8 38.9 - 50.3 % [facility] Plt 210 150 - 400 K/cumm [facility] MPV 9.7 9.1 - 12.3 fL [facility] RBC 4.54 4.30 - 5.80 M/cumm [facility] MCV 89.9 81.3 - 96.4 fL [facility] MCH 29.1 27.1 - 33.3 pg [facility] MCHC 32.4 32.3 - 35.7 g/dL [facility] RDW CV 14.0 11.1 - 14.9 % [facility] RDW SD 45.7 35.7 - 48.1 fL [facility] NRBC abs 0.00 0.00 - 0.01 K/cumm [facility] Blood 09/24/2025 8:57 AM BOTTLE MACHINE OPERATOR 09/24/2025 9:08 AM BOTTLE MACHINE OPERATOR Farheen Wise EPIC APPLICATION COORDINATOR LAB BLOOD ORDERABLES Final R esult Performing Organization Address City/[facility]/ZIP Co de Phone Number [address] [place] [address] * (ABNORMAL) PTH (09/24/2025 8:57 AM BOTTLE MACHINE OPERATOR) Pathologist [facility] PTH 79(H) 18 - 59 pg/mL Blood 09/24/2025 8:57 AM BOTTLE MACHINE OPERATOR 09/24/2025 9:08 AM BOTTLE MACHINE OPERATOR us Farheen Wise EPIC APPLICATION COORDINATOR LAB BLOOD ORDERABLES Final R esult Performing Organization Address City/[facility] Co de Phone Number [address] [place] [address] * Ferritin (09/24/2025 8:57 AM BOTTLE MACHINE OPERATOR) Pathologist [facility] Ferritin 135 30 - 400 ng/mL Blood 09/24/2025 8:57 AM BOTTLE MACHINE OPERATOR 09/24/2025 9:08 AM BOTTLE MACHINE OPERATOR Farheen Wise EPIC APPLICATION COORDINATOR LAB BLOOD ORDERABLES Final R esult Performing Organization Address City/[facility] Co de Phone Number [address] [place] [address] * Renal function panel (09/24/2025 8:57 AM BOTTLE MACHINE OPERATOR) Sodium 142 135 - 145 mmol/L Potassium, pl 3.8 3.3 - 4.9 mmol/L [facility] Chloride 104 97 - 110 mmol/L [facility] CO2 32 22 - 32 mmol/L [facility] Anion gap 6 2 - 15 mmol/L [facility] BUN 15 6 - 25 mg/dL [facility] Creatinine 1.25 0.80 - 1.30 mg/dL [facility] Glucose 120 70 - 199 mg/dL [facility] Comment: Interpretive Data Fasting glucose [...] classification and Diagnosis of Diabetes Diabetes Care 202; 46: S19-S40. Current interpretive data was last revised 2022. Calcium 9.2 8.5 - 10.3 mg/dL [facility] Phosphorus, pl 3.9 2.3 - 4.5 mg/dL [facility] Albumin 4.0 3.5 - 5.0 g/dL [facility] Blood 09/24/2025 8:57 AM BOTTLE MACHINE OPERATOR 09/24/2025 9:08 AM BOTTLE MACHINE OPERATOR Farheen Wise EPIC APPLICATION COORDINATOR LAB BLOOD ORDERABLES Final R esult [facility] [address] Department [place] [address] * Occult blood, fecal non neoplasm screening (12/26/2016 2:23 PM BOTTLE MACHINE OPERATOR) Stool Occult Blood NEGATIVE NEGATIVE 12/26/2016 3:08 PM BOTTLE MACHINE OPERATOR [facility] HISTORICAL RESULTS 12/26/2016 2:23 PM BOTTLE MACHINE OPERATOR 12/26/2016 2:38 PM BOTTLE MACHINE OPERATOR Narrative [facility] HISTORICAL RESULTS - 12/26/2016 3:08 PM BOTTLE MACHINE OPERATOR Collected By Katerina Cantu EPIC APPLICATION COORDINATOR LAB BODY FLUIDS AND STOOL S ORDERABLES Final Result [facility] HISTORICAL RESULTS * CT Abdomen Pelvis W Contrast (12/26/2016 12:00 AM BOTTLE MACHINE OPERATOR) Anatomical Region Laterality Modality Body N/A Computed Tomogra phy 12/26/2016 Narrative 12/26/2016 4:09 PM BOTTLE MACHINE OPERATOR CT abdomen pelvis with IV contrast HISTORY: Red blood in stool for 2 days with bowel movement FINDINGS: Axial CT images of the abdomen pelvis were obtained after uneventful IV administration 100 mL Omnipaque 350 given in the left wrist. Comparison CT abdomen from 09/27/2011 and abdomen pelvis from 08/24/2010. Limited images through the lung bases demonstrate minimal dependent atelectasis. There is a hemangioma seen within the left lobe of the liver. Additional hemangioma seen within the right lobe the liver. There are also a couple of small hepatic cysts identified. The spleen, pancreas, adrenal glands, and right kidney are normal appearance. Small left renal cortical cyst. The stomach and small bowel including the terminal ileum normal appearance. Appendix normal appearance. Colon normal appearance. The bladder is partially distended. Probable TURP defect. Normal enhancement of the abdominal and pelvic vasculature. No free fluid, inflammatory stranding, or lymphadenopathy. There is marked right hip osteoarthritis and mild left hip osteoarthritis. Marked degenerative changes in the spine. Impression: There is no acute abdominal or pelvic finding. No finding to explain the patients clinical symptoms. Automated exposure control was used as a dose optimization technique for this examination. THIS IS AN ELECTRONICALLY VERIFIED REPORT 12/26/2016 4:06 PM: Amauri Goldberg M.D. Amauri Goldberg M.D. DS:ds 04:06 PM 04:06 PM MON [EOD] Procedure Note Provider, MD Adolfo - 03/30/2021 CT abdomen pelvis with IV contrast HISTORY: Red blood in stool for 2 days with bowel movement FINDINGS: Axial CT images of the abdomen pelvis were obtained after uneventful IV administration 100 mL Omnipaque 350 given in the left wrist. Comparison CT abdomen from 09/27/2011 and abdomen pelvis from08/24/2010. Limited images through the lung bases demonstrate minimal dependent atelectasis. There is a hemangioma seen within the left lobe of the liver. Additional hemangioma seen within the right lobe the liver. There are also a coupleof small hepatic cysts identified. The spleen, pancreas, adrenal glands, and right kidney are normal appearance. Small left renal cortical cyst. The stomach and small bowel including the terminal ileum normal appearance. Appendix normal appearance. Colon normal appearance. The bladder is partially distended. Probable TURP defect. Normalenhancement of the abdominal and pelvic vasculature. No free fluid, inflammatory stranding, or lymphadenopathy. There is marked right hip osteoarthritisand mild left hip osteoarthritis. Marked degenerative changes in the spine. Impression: There is no acute abdominal or pelvic finding. No finding to explain the patients clinical symptoms. Automated exposure control was used as a dose optimization technique forthis examination. THIS IS AN ELECTRONICALLY VERIFIED REPORT 12/26/2016 4:06 PM: Amauri Goldberg M.D. Amauri Goldberg M.D. DS:ds 04:06 PM 04:06 PM MON [EOD] Katerina Cantu NP IMG CT PROCEDURES Final R esult from Last 3 Months or Most Recently Relevant to Health Maintenance Insurance [employer] MEDIC[employer] PPO Member Subscriber Plan / Payer (Ef fective 2022-Present) Name:Soren Garcia Relation to Subscriber:Self Name:Soren Garcia Payer ID:[id number] (NAIC) Type:MEDICARE RISK OTHER Address: [address] MEDICARE ADVANTAGE [facility] MEDICARE ADVANTAGE [facility] Care Teams Personal Lines Sales Executive Relationship Specialty Start Date End Date Michele Monique MD [address] [address] PCP - General 12/06/19 Bernardo Henriquez MD [address] [address] Consulting Physician Plastic Surgery 01/25/23
--- OUTSIDE RECORDS SUMMARY | 2025-09-24 10:28 | XMS_ITS | Data Portability ---
Author Organization [place] - [facility] OFFICE Address [address] [place] [address] Assessment Encounter Date Assessment Date Assessment LastModified by Organization Details LastModified Time 08/08/2023 08/08/2023 Patient Examined by MAGDA Hong, Also Documentation reviewed and approved by supervising physician santiago Not available 08/06/2023 08:36:29 11/09/2023 11/09/2023 Patient Examined by MAGDA Hong, Also Documentation reviewed and approved by supervising physician mallory Not available 11/09/2023 11:19:15 11/30/2023 11/30/2023 Patient Examined by MAGDA Hong, Also Documentation reviewed and approved by supervising physician santiago Not available 11/29/2023 10:56:49 04/05/2024 04/05/2024 Patient Examined by MAGDA Hong, Also Documentation reviewed and approved by supervising physician mallory Not available 04/05/2024 10:28:20 Plan of Treatment Reminders Order Date Submit Date Provider Last Modified By Organization Details Last Modified Time Details Appointments None recorded. Lab None recorded. Referral None recorded. Procedures None recorded. Surgeries None recorded. Imaging None recorded. Medication Orders Fish Oil 1,000 mg (120 mg-180 mg) capsule 2023 024 [id number], [address], [place], [phone], 15:26:38 magnesium 400 mg (as magnesium oxide) tablet 2023 024 [id number], [address] [facility], [place], [place], [phone], 15:26:38 Patient TargetsNo targets recorded. Patient Instructions Encounter Date Encounter Id Patient Instructions Last Modified By Organization Details Last Modified Time 11/09/2023 [id number] Low cholesterol diet advised Low sodium diet advised. eyassin Not available 11/09/2023 11:27:20 11/30/2023 [id number] Exercise advised Low cholesterol diet advised Low sodium diet advised. eyassin Not available 11/30/2023 15:26:32 01/07/2024 [id number] Weight loss 20 pounds Exercise advised Low cholesterol diet advised Low sodium diet advised. [email or web address] Not available 01/07/2024 09:55:34 04/05/2024 [id number] Low cholesterol diet advised Low sodium diet advised. eyassin Not available 04/05/2024 10:30:33 Reason for Referral None Reported. Results Created Date Observation Date Name Description Value Unit Range Abnormal Flag Note LastModifiedBy Organization Detail LastModifiedTime 09/12/2007/23/2023 megan can cardi olite stres s test (PROC ) No observ ation record ed. [email or web address] Not Available 2022 12:20:53 11/30/19 24 11/15/2023 event monit or No observ ation record ed. [email or web address] Not Available 2023 15:33:36 12/14/19 24 11/22/2023 event monit or No observ ation record ed. [email or web address] Not Available 2023 16:32:47 12/27/1912/21/2023 US, echo ardio gram No observ ation record ed. [email or web address] Not Available 2023 14:17:40 01/07/20 24 01/07/2024 elect rocar diogr am No observ ation record ed. [email or web address] Not Available 2023 10:16:47 04/10/20 24 04/05/2024 elect rocar diogr am No observ ation record ed. [email or web address] Not Available 2023 12:26:15 Result Notes None recorded. Problems Name Problem SNOMED Code Status Onset Date Resolution Date Notes Provider Name and Address Organization Details Recorded Time Obesity 236367037 Active Borden Mesto [place], [place] - [facility] 7 16:39:38 Full thickness rotator cuff tear 940076869 Active Borden [place] [facility] 7 16:39:38 Low back pain 795462346 Active Borden Mesto null, [place] - [facility] 7 16:39:38 Essential hypertensio n 88839604 Active Borden [place] [facility] 3 16:03:48 Hypogonadis m 07115822 Active Borden [place] [facility] 7 16:39:38 Papular eruption 282095358 Active Borden Mesto null, [place] - [facility] 7 16:39:38 Psoriasis 4917259 Active Borden M[place] null, [place] [facility] 7 16:39:38 Depressive disorder 89673825 Active Borden [place] [facility] 7 16:39:38 Pain of shoulder region 89471117 Active Borden [place] [facility] 7 16:39:38 Foreign body 375962423 Active Borden Mesto null, [place] [facility] 7 16:39:38 Chronic obstructive pulmonary disease 63655207 Active Borden [place] [facility] 3 16:01:56 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 Borden [place] [facility] 7 16:39:38 Psychotic disorder 49939241 Active Borden [place] [facility] 7 16:39:38 Benign prostatic hyperplasia 676343022 Active Borden [place] [facility] 7 16:39:38 Osteoarthri tis of hip 436151479 Active Borden [place] [facility] 7 16:39:38 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 Borden [place] [facility] 7 16:39:38 Osteoarthri tis of shoulder region 39841774 Active Bordenbebeto Mckeon [facility], [place] - [facility] 7 16:39:38 Reactive airway disease 519025112319 Active 2016 Michi Mckeon [place], [place] - [facility] 7 16:39:38 Asthma 444496702 Active 2016 Michi Hewittnetta [place] [facility] 7 14:09:48 Parkinson's disease 02681698 Active 2016 obinna prado, [place] - [facility] 7 10:42:14 Dyslipidemi a 212217093 Active 2016 Michi Mckeon [facility], [place] - [facility] 3 16:03:28 Edema of lower extremity 057736880 Active 2016 Michi Mckeon [facility], [place] - [facility] 7 14:09:48 Dyspnea on exertion 51451528 Active 2020 Michi Mckeon [facility], [place] - [facility] 1 14:03:37 Problem Notes None recorded. Procedures Surgical History Date Name Laterality Status Provider Name and Address Organization Details Recorded Time Colonoscopy completed obinna singer [facility] 01/20/2017 10:43:05 Imaging Results None recorded. Procedure Notes None recorded. Medical Equipment None Reported. Allergies Allergen ID Allergen Name Allergen Category Reaction Reaction Severity Criticality Documentation Date Start Date Code Code System Note Provider Name and Address Organization Details Recorded Time 3990 tramadol medicatio n Not available Not available Not available 03/01/2017 94428 RxNorm Michi Mckeon [facility], [place] - [facility] 7 16:38:17 3991 cyclobenz aprine medicatio n other Not available Not available 03/01/2017 88436 RxNorm Michi Mckeon null, [place] - [facility] 7 16:38:17 Medications Name Sig Start Date Stop Date Status Note LastModified by Organization Details LastModified Time tetracycl ine 500 mg capsule 09/15 completed Not Available Not Available Not Available cyclobenz aprine 10 mg tablet 10/03 completed Not Available Not Available Not Available amoxicill in 500 mg capsule TAKE 1 CAPSULE BY MOUTH EVERY 8 HOURS FOR 10 DAYS 07/04 completed Not Available Not Available Not Available gabapenti n 600 mg tablet TAKE 1 TABLET BY MOUTH THREE TIMES DAILY active Not Available Not Available No t Available naproxen 375 mg tablet TAKE 1 TABLET BY MOUTH TWICE DAILY NEEDED active Not Available Not Available No t Available trazodone 50 mg tablet TAKE 1/2 TABLET BY MOUTH AT BEDTIME NEEDED active Not Available Not Available No t Available triamcino lone acetonide 0.5 % topical cream APPLY A THIN LAYER TO THE AFFECTED AREA(S) BY TOPICAL ROUTE 1 TIMES PER DAY 01/01 completed Not Available Not Available Not Available lisinopri l 20 mg-hydroc hlorothia zide 12.5 mg tablet TAKE 2 TABLETS BY MOUTH EVERY DAY active Not Available Not Available No t Available aspirin 325 mg tablet Take every 24 hours by oral route. 10/03 completed Not Available Not Available Not Available hydrocodo ne 5 mg-acetam inophen 325 mg tablet 1 tab q6hrs 06/02 completed Not Available Not Available Not Available meloxicam 15 mg tablet 1 tab qd 10/03 completed Not Available Not Available Not Available Doc-Q-Lac e 100 mg capsule Take 1 capsule twice a day by oral route. 10/03 completed Not Available Not Available Not Available amlodipin e 5 mg tablet TAKE 1 TABLET BY MOUTH EVERY DAY active Not Available Not Available No t Available omeprazol e 40 mg capsule,d elayed release 1 tab bid 10/03 completed Not Available Not Available Not Available aspirin 81 mg tablet,de layed release TAKE 1 TABLET BY MOUTH EVERY DAY 08/06 completed Not Available Not Available Not Available tramadol 50 mg tablet TAKE ONE TABLET BY MOUTH EVERY 8 HOURS NEEDED active Not Available Not Available No t Available triamcino lone acetonide 0.1 % topical cream APPLY TOPICALL Y TO THE AFFECTED AREA EVERY DAY NEEDED active Not Available Not Available No t Available pantopraz ole 20 mg tablet,de layed release 1 tab qd 03/12 completed pt is no longer taking 01/15/22 Not Available Not Available Not Available oxycodone -acetamin ophen 5 mg-325 mg tablet 10/03 completed Not Available Not Available Not Available famotidin e 20 mg tablet TAKE 1 TABLET BY MOUTH TWICE DAILY FOR 15 DAYS active pt take as prn Not Available Not Available Not Available magnesium oxide 400 mg (241.3 mg magnesium ) tablet TAKE 1 TABLET BY MOUTH EVERY DAY active Not Available Not Available No t Available methocarb heri 750 mg tablet 10/03 completed Not Available Not Available Not Available aspirin 325 mg tablet,de layed release Take 1 tablet(s ) every day by oral route. 2023 active Not Available Not Available Not Avai lable tamsulosi n 0.4 mg capsule TAKE 1 CAPSULE BY MOUTH EVERY DAY active Not Available Not Available No t Available amlodipin e 10 mg tablet TAKE 1 TABLET BY MOUTH DAILY 07/04 completed Not Available Not Available Not Available simvastat in 20 mg tablet TAKE 1 TABLET BY MOUTH EVERY DAY active Not Available Not Available No t Available prednison e 50 mg tablet TAKE 1 TABLET BY MOUTH DAILY FOR 5 DAYS 03/12 completed pt is no longer taking 01/15/22 SA Not Available Not Available Not Available nitroglyc joie 0.4 mg sublingua l tablet DISSOLVE 1 TABLET UNDER THE TONGUE DIRECTED active Not Available Not Available No t Available Banophen 25 mg capsule 03/12 completed Not Available Not Available Not Available verapamil ER (SR) 240 mg tablet,ex tended release TAKE ONE TABLET BY MOUTH ONCE DAILY 09/15 completed Pt is no more on this medicati on 03/17/20 sm Not Available Not Available Not Available hydrocort isone 2.5 % topical cream 10/03 completed Not Available Not Available Not Available hydrochlo rothiazid e 25 mg tablet 1 tab qd 03/03 completed Not Available Not Available Not Available furosemid e 20 mg tablet TAKE 1 TABLET BY MOUTH DAILY NEEDED active Not Available Not Available No t Available Viagra 100 mg tablet TAKE 1 TABLET BY MOUTH EVERY DAY NEEDED, APPROXIM ATELY 1 HOUR BEFORE SEXUAL ACTIVITY active Not Available Not Available No t Available epinephri ne 0.3 mg/0.3 mL injection , auto-inje ctor active Not Available Not Available Not Available diltiazem 30 mg tablet Take 1 tablet twice a day by oral route. 11/09 completed Not Available Not Available Not Available trihexyph enidyl 2 mg tablet 1 tab qd 03/16 completed Not Available Not Available Not Available carbidopa 25 mg-levodo pa 100 mg tablet TAKE 1 TABLET BY MOUTH THREE TIMES DAILY active Not Available Not Available No t Available oxybutyni n chloride 5 mg tablet Take 1 tablet every day by oral route. active Not Available Not Available No t Available amoxicill in 875 mg-potass ium clavulana te 125 mg tablet 01/20 completed Not Available Not Available Not Available Ventolin HFA 90 mcg/actua tion aerosol inhaler Inhale 2 puffs every 4 hours by inhalati on route as needed. active Not Available Not Available No t Available enoxapari n 40 mg/0.4 mL subcutane ous syringe 10/03 completed Not Available Not Available Not Available Viagra 1 tab qd as needed 06/02 completed Not Available Not Available Not Available Ventolin HFA 2 puffs bid active Not Available Not Available No t Available cholecalc iferol (vitamin D3) 50 mcg (2,000 unit) capsule TAKE 1 CAPSULE BY MOUTH DAILY active Not Available Not Available No t Available Aleve 220 mg capsule Take 1 capsule twice a day by oral route as needed. active Not Available Not Available No t Available oxycodone 7.5 mg-acetam inophen ER 325 mg tab extended rel. oral only Take 2 tablets every 12 hours by oral route. 03/03 completed Not Available Not Available Not Available Fish Oil 1,000 mg (120 mg-180 mg) capsule Take 1 capsule twice a day by oral route. 2023 active Not Available Not Available Not Avai lable magnesium 400 mg (as magnesium oxide) tablet Take 1 tablet every day by oral route. 2023 active Not Available Not Available Not Avai lable omega-3 300 mg-dha 120 mg-epa 180 mg-fish oil 1,000 mg capsule TAKE 1 CAPSULE BY MOUTH TWICE DAILY active Not Available Not Available No t Available aspirin 325 mg capsule Take 1 capsule every day by oral route. 08/06 completed Not Available Not Available Not Available Qulipta 30 mg tablet TAKE 1 TABLET BY MOUTH DAILY active Not Available Not Available No t Available Vitals Date Recorded Body height Body mass index (BMI) Body weight Heart rate Oxygen saturation Oxygen saturation in Arterial blood by Pulse oximetry Systolic And Diastolic Provider Name and Address Organization Details Last Updated DateTime 4 172.72 cm 31.8 kg/m2 16932.8 1 g 65 /min 94 % 94 % 147/81 mm[Hg] Dennis SANTILLAN - [facility] 4 14:42:11 Date Recorded Body height Body mass index (BMI) Body weight Heart rate Oxygen saturation Oxygen saturation in Arterial blood by Pulse oximetry Systolic And Diastolic Provider Name and Address Organization Details Last Updated DateTime 4 172.72 cm 31.9 kg/m2 95677.4 g 62 /min 96 % 96 % 180/82 mm[Hg] Cami Wadsworthes [facility] 4 09:28:18 Date Recorded Body height Body mass index (BMI) Body weight Heart rate Oxygen saturation Oxygen saturation in Arterial blood by Pulse oximetry Systolic And Diastolic Provider Name and Address Organization Details Last Updated DateTime 4 172.72 cm 31.1 kg/m2 39802 g 55 /min 87 % 87 % 147/79 mm[Hg] Valencia Yuuse [facility] 4 09:56:15 Date Recorded Body height Body mass index (BMI) Body weight Heart rate Respiratory rate Oxygen saturation Oxygen saturation in Arterial blood by Pulse oximetry Systolic And Diastolic Provider Name and Address Organization Details Last Updated DateTime 3 172.72 cm 32.1 kg/m2 42435.9 9 g 69 /min 16 /min 95 % 95 % 122/70 mm[Hg] Dennis Swan [facility] 3 10:26:44 Date Recorded Body height Body mass index (BMI) Body weight Heart rate Oxygen saturation Oxygen saturation in Arterial blood by Pulse oximetry Systolic And Diastolic Provider Name and Address Organization Details Last Updated DateTime 3 172.72 cm 31 kg/m2 39085.8 4 g 63 /min 95 % 95 % 122/72 mm[Hg] Josseline Torrey [facility] 3 10:35:05 Social History Question Answer Notes LastModified by Organizat ion Details LastModified Time Tobacco Smoking Status Former Smoker Quit: 1969 Michi prado [facility] 09/15/2023 13:53:55 Do You Have An Advance Directive? No Information not available 01/20/2017 What Is Your Level Of Caffeine Consumption? Occasional Information not available 01/20/2017 How Much Tobacco Do You Chew? None Information not available 01/20/2017 What Type Of Diet Are You Following? REGULAR Information not available 01/20/2017 Which Illicit Or Recreational Drugs Have You Used? No Information not available 01/20/2017 Live Alone Or With Others? Alone Information not available 01/20/2017 Marital Status Single Informati on not available 01/20/2017 What Was The Date Of Your Most Recent Tobacco Screening? 04/02/2019 Information not available 06/07/2019 How Many Children Do You Have? 6 Information not available 01/20/2017 What Is Your Relationship Status? Single Information not available 09/15/2023 How Much Tobacco Do You Smoke? No Information not available 09/14/2019 General Stress Level Low Information not available 01/20/2017 How Many Years Have You Smoked Tobacco? 0 Information not available 09/29/2018 Sex: Unknown Functional Status Question Answer Note LastModified by Organizat ion Details LastModified Time What is your level of alcohol consumption? Occasional Information not available 01/20/2017 Do you or have you ever used smokeless tobacco? 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 Never used electronic cigarettes Information not available 09/14/2019 What is your exercise level? None Information not available 01/20/2017 Mental Status None recorded. Family History Relationship Description Onset Age of this Age Resolved Age Notes LastModified by Organization Details LastModified Time Father Heart disease Not available 07/2017 10:43:44 Father Hypertensive disorder hmesto Not available 2022 13:51:00 Sister Hypertensive disorder Not available 07/2017 10:44:13 Mother Malignant neoplastic disease neopla sm of ovary hmesto Not available 09/15/2023 13:52:33 Unspecified Relation Diabetes mellitus Siblin g 1 hmesto Not available 09/15/2023 13:51:42 Unspecified Relation Hypertensive disorder Yoselin william 2 hmesto Not available 09/15/2023 13:52:09 Medical History Condition Response Depression Y COPD Y Hyperlipidemia Y Asthma Y Hypertension Y Immunizations Vaccine Type Date Status Note Provider Nam e and Address Organization Details Recorded Time Influenza, split virus, quadrivalent, preservative 6 completed Borden [place], [place] - [facility] 03/01/2017 16:39:56 Tdap 6 completed B[place] [facility] 03/01/2017 16:39:56 Influenza, split virus, quadrivalent, preservative 4 completed B[place] [facility] 03/01/2017 16:39:56 pneumococcal, unspecified formulation 0 completed B[place] [facility] 09/15/2023 13:55:18 pneumococcal, unspecified formulation 9 completed Borden [place] [facility] 09/15/2023 13:55:40 Influenza, split virus, quadrivalent, preservative 7 completed Borden [place] [facility] 09/29/2017 14:10:17 Past Encounters Encounter ID Performer Location Encounter Start Date Encounter Closed Date Diagnosis/Indication Diagnosis SNOMED-CT Code Diagnosis ICD10 Code Diagnosis IMO Codes Diagnosis Note [id number] MD [facility] [address] [place] [address] 01/20/2017 10:20:18 01/21/2017 10:19:09 Pre-surgery evaluation 768329882 Z01.818 Benign hypertension 1072 5009 I10 Electrocar diogram abnormal 901705906 R94.31 Treadmill Myoview Stress test, has high [place] Risk score. Has Known CAD, or CAD risk equivalent . To look for any ischemia. Dyslipidemia 616026392 E 78.5 Needs to keep LDL less than 70, and HDL more than 40Will get fating lipids for follow up Obesity 938756468 E66.9 [id number] MD [facility] [address] [place] [address] 03/03/2017 12:25:50 03/03/2017 15:31:43 Essential hypertension 94521744 I10 Benign hypertension 1072 5009 I10 Now well controlled Electrocar diogram abnormal 053361097 R94.31 Treadmill Myoview Stress test was negative Dyslipidemia 815086551 E 78.5 Needs to keep LDL less than 70, and HDL more than 40Will get fating lipids for follow up Obesity 315351815 E66.9 Edema of l ower extremity 780459747 R60.0 Will change to Lasix [id number] MD [facility] [address] [facility] [address] [place] [address] 06/02/2017 10:32:35 06/02/2017 15:00:54 Essential hypertension 32852552 I10 Benign hypertension 1072 5009 I10 Now well controlled Electrocar diogram abnormal 641332620 R94.31 Treadmill Myoview Stress test was negative Dyslipidemia 232647847 E 78.5 Needs to keep LDL less than 70, and HDL more than 40Will get fating lipids for follow up Obesity 359139680 E66.9 Edema of l ower extremity 378421677 R60.0 Will change to Lasix [id number] MD [facility] [address] [facility] [address] [place] [address] 10/03/2017 11:00:30 10/03/2017 12:31:06 Dyspnea on exertion 88643291 R06.09 Benign hypertension 1072 5009 I10 Blood pressure is elevated today, but this is only one reading, will keep close follow up, and consider medication change if blood pressure is still elevated next visit. Electrocar diogram abnormal 876991375 R94.31 Treadmill Myoview Stress test was negative Dyslipidemia 564043182 E 78.5 Needs to keep LDL less than 70, and HDL more than 40Will get fating lipids for follow up Obesity 732258480 E66.9 20 lb. weight loss recommende d over the next 2 months. Edema of l ower extremity 567328902 R60.0 Will change to LasixDiscu ssed decreasing salt intake. [id number] MD [facility] [address] [facility] [address] [place] [address] 04/03/2018 11:27:35 04/04/2018 16:47:06 Dyspnea on exertion 30304086 R06.09 Benign hypertension 1072 5009 I10 with fair control Electrocar diogram abnormal 984491752 R94.31 Treadmill Myoview Stress test was negative Dyslipidemia 042829002 E 78.5 Needs to keep LDL less than 70, and HDL more than 40 Will get fating lipids for follow up01/04/18 TC: 185 Obesity 200249666 E66.9 20 lb. weight loss recommende d over the next 2 months. Edema of l ower extremity 796446246 R60.0 On LasixDiscu ssed decreasing salt intake. [id number] MD [facility] [address] [facility] [address] [place] [address] 10/02/2018 11:08:32 10/02/2018 12:52:26 Dyspnea on exertion 46998447 R06.09 Benign hypertension 1072 5009 I10 with fair control Electrocar diogram abnormal 254224175 R94.31 Treadmill Myoview Stress test was negative Dyslipidemia 449204656 E 78.5 Needs to keep LDL less than 70, and HDL more than 40 Will get fating lipids for follow up01/04/18 TC: 185 Obesity 000413198 E66.9 20 lb. weight loss recommende d over the next 2 months. Edema of l ower extremity 215963743 R60.0 On LasixDiscu ssed decreasing salt intake. [id number] MD [facility] [address] [facility] [address] [place] [address] 04/02/2019 09:25:55 04/02/2019 10:25:47 Dyspnea on exertion 17769837 R06.09 Could be angina equivalent Treadmill Myoview Stress test, has high [place] Risk score. Has Known CAD, or CAD risk equivalent . To look for any ischemia. Benign hypertension 1072 5009 I10 with fair control Electrocar diogram abnormal 670901076 R94.31 Treadmill Myoview Stress test was negative Dyslipidemia 462835066 E 78.5 Needs to keep LDL less than 70, and HDL more than 40 Will get fating lipids for follow up01/04/18 TC: 185 Obesity 669896202 E66.9 20 lb. weight loss recommende d over the next 2 months. Edema of l ower extremity 797288812 R60.0 On LasixDiscu ssed decreasing salt intake. [id number] MD [facility] [address] [facility] [address] [place] [address] 09/17/2019 10:48:08 09/17/2019 11:56:13 Dyspnea on exertion 26854727 R06.09 Mild, stable.03/02 ATUL: Adequate Stress with Lexiscan. Negative Lexiscan stress test. Normal LV systolic function. LVEF 60%. Benign hypertension 1072 5009 I10 Blood pressure is elevated today, but this is only one reading, will keep close follow up, and consider medication change if blood pressure is still elevated next visit. Electrocar diogram abnormal 135489023 R94.31 RBBB. Treadmill Myoview Stress test was negative Dyslipidemia 705362403 E 78.5 Needs to keep LDL less than 70, and HDL more than 40 Will get fating lipids for follow up01/04/18 TC: 185 Obesity 864426517 E66.9 20 lb. weight loss recommende d over the next 2 months. Edema of l ower extremity 115387020 R60.0 On Lasix. Stable, mild.Discu ssed decreasing salt intake. [id number] MD [facility] [address] [facility] [address] [place] [address] 03/17/2020 11:05:10 03/17/2020 12:11:48 Dyspnea on exertion 49687794 R06.09 Mild, stable.03/02 ATUL: Adequate Stress with Lexiscan. Negative Lexiscan stress test. Normal LV systolic function. LVEF 60%. Benign hypertension 1072 5009 I10 Well controlled Electrocar diogram abnormal 721110702 R94.31 Wandering pacemaker, RBBB. Treadmill Myoview Stress test was negative Dyslipidemia 773170186 E 78.5 Needs to keep LDL less than 70, and HDL more than 40Will get fasting lipids for follow up09/19/19 : TC 166 ,TG 73 ,HDL 44 ,LDL 107 Obesity 402517913 E66.9 20 lb. weight loss recommende d over the next 2 months. Edema of l ower extremity 183987310 R60.0 On Lasix. Stable, mild.Discu ssed decreasing salt intake. [id number] MD [facility] Office [address] [facility] [address] [place] [address] 09/15/2020 10:41:06 09/15/2020 11:15:47 Dyspnea on exertion 23599160 R06.09 Mild, stable.Elías iscan 04/17/2019 : Adequate Stress with Lexiscan. Negative Lexiscan stress test. Normal LV systolic function. LVEF 60%.Echo 04/19/2018 : LV chamber size is normal. There is normal global systolic function and contractil ity. There is mild tricuspid regurgitat ion. The estimated RV systolic pressure is 30-40. Attachment available Benign hypertension 1072 5009 I10 Well controlled Electrocar diogram abnormal 234681613 R94.31 Wandering pacemaker, RBBB. Dyslipidemia 846201755 E 78.5 Needs to keep LDL less than 70, and HDL more than 40. 019 LDL 107Current ly not on statin therapy, advised diet modificati ons prior to initiating statin.Jonah l get fasting lipids for follow-up Obesity 330249332 E66.9 20lb weight loss recommende d over the next 2 months Edema of l ower extremity 766792567 R60.0 Stable on LasixLeg elevation and low sodium diet advised 34581 MD Santo Howard e Office [address] [facility] [facility] [address] [place] [address] 03/16/2021 10:16:34 03/16/2021 10:49:26 Dyspnea on exertion 03728580 R06.09 Mild, stable. Lexiscan 04/17/2019 : Adequate Stress with Lexiscan. Negative Lexiscan stress test. Normal LV systolic function. LVEF 60%. Echo 04/19/2018 : LV chamber size is normal. There is normal global systolic function and contractil ity. There is mild tricuspid regurgitat ion. The estimated RV systolic pressure is 30-40. Benign hypertension 1072 5009 I10 Well controlled on current regimen Electrocar diogram abnormal 910410141 R94.31 Wandering pacemaker, RBBB. Unchanged Dyslipidemia 421881913 E 78.5 Needs to keep LDL less than 70, and HDL more than 40.11/06/2 019 LDL 107Current ly not on statin therapy, advised diet modificati ons prior to initiating statin.Jonah l get fasting lipids for follow-up Obesity 953873025 E66.9 20 lb weight loss recommende d over the next 2 months Edema of l ower extremity 591385195 R60.0 Improved on Lasix Obtain echo to evaluate for structural /functiona l disease Leg elevation and low sodium diet advised 96989 Mikhail Romeo MD [facility] Office [address] [facility] Alireza [facility] [place] [place] [address] 05/28/2021 10:44:38 05/28/2021 11:32:10 Dyspnea on exertion 36983037 R06.09 Lexiscan Myoview stress test, pt can not walk. Has known coronary artery disease, with atypical symptoms now Benign hypertension 1072 5009 I10 Well controlled on current regimen Electrocar diogram abnormal 067456940 R94.31 Dyslipidemia 119923337 E 78.5 Needs to keep LDL less than 70, and HDL more than 40. 021 LDL 121Start simvastati n 20 mgWill get fasting lipids for follow-up Obesity 682748548 E66.9 20 lb weight loss recommende d over the next 2 months Edema of l ower extremity 759096814 R60.0 Stable on LasixLeg elevation and low salt diet advised Echo 12/12/2020 : Injection of contrast demonstrat ed no interatria l shunt. Ejection fraction =50-55%. No obvious regional wall motion abnormalit ies noted. The right ventricle is mildly dilated. The right ventricula r systolic function is borderline reduced. 89617 Mikhail Romeo MD [facility] [address] [place] [address] 01/15/2022 10:54:34 01/15/2022 12:17:43 Dyspnea on exertion 10841386 R06.09 12/12/2020 : Echocardio graphic Studies; Injection of contrast demonstrat ed no interatria l shunt Ejection fraction =50-55% No obvious regional wall motion abnormalit ies noted The right ventricle is mildly dilated The right ventricula r systolic function is borderline reduced Benign hypertension 1072 5009 I10 his blood pressure is running low we will stop his amlodipin Electrocar diogram abnormal 498602023 R94.31 12/12/2020 : Echocardio graphic Studies; Injection of contrast demonstrat ed no interatria l shunt Ejection fraction =50-55% No obvious regional wall motion abnormalit ies noted The right ventricle is mildly dilated The right ventricula r systolic function is borderline reduced Dyslipidemia 643326469 E 78.5 Needs to keep LDL less than 70, and HDL more than 40. 021 LDL 121Start simvastati n 20 mgWill get fasting lipids for follow-up Obesity 500897071 E66.9 20 lb weight loss recommende d over the next 2 months Edema of l ower extremity 989809871 R60.0 Stable on LasixLeg elevation and low salt diet advised Echo 12/12/2020 : Injection of contrast demonstrat ed no interatria l shunt. Ejection fraction =50-55%. No obvious regional wall motion abnormalit ies noted. The right ventricle is mildly dilated. The right ventricula r systolic function is borderline reduced. Syncope 854456325 R55 we place heart monitor MCT Essential hypertension 35670283 I10 52896 Mikhail Romeo MD [facility] [place] [address] 03/12/2022 11:49:14 03/12/2022 13:48:45 Dyspnea on exertion 31793527 R06.09 12/12/2020 : Echocardio graphic Studies; Injection of contrast demonstrat ed no interatria l shunt Ejection fraction =50-55% No obvious regional wall motion abnormalit ies noted The right ventricle is mildly dilated The right ventricula r systolic function is borderline reduced Benign hypertension 1072 5009 I10 His blood pressure is elevated today after taking off his amlodipinn ow we will restart taking 5 mg daily instead of 10 mg. Electrocar diogram abnormal 681237547 R94.31 12/12/2020 : Echocardio graphic Studies; Injection of contrast demonstrat ed no interatria l shunt Ejection fraction =50-55% No obvious regional wall motion abnormalit ies noted The right ventricle is mildly dilated The right ventricula r systolic function is borderline reduced Dyslipidemia 609714298 E 78.5 Needs to keep LDL less than 70, and HDL more than 40. 021 LDL 121Start simvastati n 20 mgWill get fasting lipids for follow-up Obesity 332100760 E66.9 20 lb weight loss recommende d over the next 2 months Edema of l ower extremity 408790831 R60.0 Stable on LasixLeg elevation and low salt diet advised Echo 12/12/2020 : Injection of contrast demonstrat ed no interatria l shunt. Ejection fraction =50-55%. No obvious regional wall motion abnormalit ies noted. The right ventricle is mildly dilated. The right ventricula r systolic function is borderline reduced. Syncope 760678737 R55 we place heart monitor MCT Atypical chest pain 1025 11522 R07.89 we will do atul Ventricula r premature beats 12099208 I49.3 we will start fish oil 86356 Mikhail Romeo MD [facility] [address] [place] [address] 05/21/2022 09:34:37 05/21/2022 10:45:40 Dyspnea on exertion 70681599 R06.09 12/12/2020 : Echocardio graphic Studies; Injection of contrast demonstrat ed no interatria l shunt Ejection fraction =50-55% No obvious regional wall motion abnormalit ies noted The right ventricle is mildly dilated The right ventricula r systolic function is borderline reduced Benign hypertension 1072 5009 I10 Now well controlled Electrocar diogram abnormal 679907188 R94.31 12/12/2020 : Echocardio graphic Studies; Injection of contrast demonstrat ed no interatria l shunt Ejection fraction =50-55% No obvious regional wall motion abnormalit ies noted The right ventricle is mildly dilated The right ventricula r systolic function is borderline reduced Dyslipidemia 516581536 E 78.5 Needs to keep LDL less than 70, and HDL more than 40. 021 LDL 121Start simvastati n 20 mgWill get fasting lipids for follow-up Obesity 691849037 E66.9 20 lb weight loss recommende d over the next 2 months Edema of l ower extremity 586515714 R60.0 Stable on LasixLeg elevation and low salt diet advised Echo 12/12/2020 : Injection of contrast demonstrat ed no interatria l shunt. Ejection fraction =50-55%. No obvious regional wall motion abnormalit ies noted. The right ventricle is mildly dilated. The right ventricula r systolic function is borderline reduced. Syncope 544703469 R55 we place heart monitor MCT Atypical chest pain 1025 41301 R07.89 stress test was negative Ventricula r premature beats 84090285 I49.3 we will start fish oil 41745 Mikhail Romeo MD [facility] [address] [place] [address] 11/19/2022 09:10:30 11/19/2022 09:44:59 Dyspnea on exertion 87913871 R06.09 12/12/2020 : Echocardio graphic Studies; Injection of contrast demonstrat ed no interatria l shunt Ejection fraction =50-55% No obvious regional wall motion abnormalit ies noted The right ventricle is mildly dilated The right ventricula r systolic function is borderline reduced Benign hypertension 1072 5009 I10 Now well controlled Electrocar diogram abnormal 574183394 R94.31 12/12/2020 : Echocardio graphic Studies; Injection of contrast demonstrat ed no interatria l shunt Ejection fraction =50-55% No obvious regional wall motion abnormalit ies noted The right ventricle is mildly dilated The right ventricula r systolic function is borderline reduced Dyslipidemia 775807808 E 78.5 Needs to keep LDL less than 70, and HDL more than 40. 021 LDL 121Start simvastati n 20 mgWill get fasting lipids for follow-up Obesity 510690675 E66.9 20 lb weight loss recommende d over the next 2 months Edema of l ower extremity 034403680 R60.0 Stable on LasixLeg elevation and low salt diet advised Echo 12/12/2020 : Injection of contrast demonstrat ed no interatria l shunt. Ejection fraction =50-55%. No obvious regional wall motion abnormalit ies noted. The right ventricle is mildly dilated. The right ventricula r systolic function is borderline reduced. Syncope 874725137 R55 NO recurrence Atypical chest pain 1025 12363 R07.89 stress test was negative Ventricula r premature beats 42708355 I49.3 On fish oil 20142 Mikhail Romeo MD [facility] [address] [place] [address] 07/05/2023 16:28:00 07/05/2023 17:12:48 Dyspnea on exertion 54484767 R06.09 12/12/2020 : Echocardio graphic Studies; Injection of contrast demonstrat ed no interatria l shunt Ejection fraction =50-55% No obvious regional wall motion abnormalit ies noted The right ventricle is mildly dilated The right ventricula r systolic function is borderline reduced Benign hypertension 1072 5009 I10 Blood pressure is elevated today, but this is only one reading, will keep close follow up, and consider medication change if blood pressure is still elevated next visit. Electrocar diogram abnormal 333887089 R94.31 Lexiscan Myoview stress test, pt can not walk. Has known coronary artery disease, with atypical symptoms now 12/12/2020 : Echocardio graphic Studies; Injection of contrast demonstrat ed no interatria l shunt Ejection fraction =50-55% No obvious regional wall motion abnormalit ies noted The right ventricle is mildly dilated The right ventricula r systolic function is borderline reduced Dyslipidemia 096020458 E 78.5 Needs to keep LDL less than 70, and HDL more than 40. 021 LDL 121continu e with simvastati n 20 mgWill get fasting lipids for follow-up Obesity 797103060 E66.9 20 lb weight loss recommende d over the next 2 months Edema of l ower extremity 607916336 R60.0 Stable on LasixLeg elevation and low salt diet advised Echo 12/12/2020 : Injection of contrast demonstrat ed no interatria l shunt. Ejection fraction =50-55%. No obvious regional wall motion abnormalit ies noted. The right ventricle is mildly dilated. The right ventricula r systolic function is borderline reduced. Syncope 715243959 R55 NO recurrence Atypical chest pain 1025 43562 R07.89 repeat stress test stress test was negative 2020 Ventricula r premature beats 62125598 I49.3 On fish oil Paroxysmal atrial fibrillation 287959767 I48.0 starting full aspirin 92419 Mikhail Romeo MD [facility] [address] [place] [address] 08/08/2023 10:15:37 08/08/2023 10:54:26 Dyspnea on exertion 09971083 R06.09 stablenega tive stress test2020: Echocardio graphic Studies; Injection of contrast demonstrat ed no interatria l shunt Ejection fraction =50-55% No obvious regional wall motion abnormalit ies noted The right ventricle is mildly dilated The right ventricula r systolic function is borderline reduced Benign hypertension 1072 5009 I10 well controlled today. Dyslipidemia 655484219 E 78.5 Needs to keep LDL less than 70, and HDL more than 40. 021 LDL 121continu e with simvastati n 20 mgWill get fasting lipids for follow-up Obesity 049073531 E66.9 20 lb weight loss recommende d over the next 2 months Edema of l ower extremity 098074752 R60.0 Stable on LasixLeg elevation and low salt diet advised Echo 12/12/2020 : Injection of contrast demonstrat ed no interatria l shunt. Ejection fraction =50-55%. No obvious regional wall motion abnormalit ies noted. The right ventricle is mildly dilated. The right ventricula r systolic function is borderline reduced. Syncope 903468780 R55 NO recurrence Atypical chest pain 1025 45870 R07.89 negative stress test stress test was negative 2020 Ventricula r premature beats 49623653 I49.3 On fish oil Paroxysmal atrial fibrillation 471437147 I48.0 stablecont inue full aspirin [id number] Mikhail Romeo MD [facility] [address] [place] [address] 11/09/2023 10:15:15 11/09/2023 11:35:00 Chronic obstructive pulmonary disease 44079534 J44.9 Dyslipidemia 765281049 E 78.5 His LDL was 70 done 11/05 and he is taking simvastati n. Essential hypertension 82281027 I10 will discontinu e amlodipinw ill consider starting him on diltiazem 30 mgBID daily Paroxysmal atrial fibrillation 381142546 I48.0 he has more episodes of dizzinessc ontinue full aspirin for now due to the risk of fallingwil l stop his amlodipin to see is his dizziness due to BP drop vs a fibwill consider adding diltiazem 30 mg BID daily to controll his a fibwill add a heart monitor for 2 weeks 04679 Mikhail Romeo MD [facility] [place] [address] 11/30/2023 14:32:01 11/30/2023 15:30:05 Chronic obstructive pulmonary disease 90273292 J44.9 Dyslipidemia 345443621 E 78.5 His LDL was 70 done 11/05 and he is taking simvastati n. Essential hypertension 02135686 I10 BP is elevated but his dizziness improved, it is ok to keep his BP in the 140/80 for now as his parkinson medication will lower his BP Paroxysmal atrial fibrillation 627230100 I48.0 Heart rate is well controlled MITESH score of 2continue with full aspirin for now Ventricula r premature complex 663741278 I49.3 His heart monitor showed BBB, occasional PVCs and PACs.will start him on fish oil and mag ox Dyspnea on exertion 6084 5006 R06.09 will repeat his echo negative stress test2020: Echocardio graphic Studies; Injection of contrast demonstrat ed no interatria l shunt Ejection fraction =50-55% No obvious regional wall motion abnormalit ies noted The right ventricle is mildly dilated The right ventricula r systolic function is borderline reduced [id number] Mikhail Romeo MD [facility] [place] [address] 01/07/2024 09:15:13 01/07/2024 09:59:14 Chronic obstructive pulmonary disease 23284531 J44.9 Dyslipidemia 230454133 E 78.5 His LDL was 70 done 11/05 and he is taking simvastati n. Essential hypertension 40392848 I10 BP is elevated but his dizziness improved, it is ok to keep his BP in the 140/80 for now as his parkinson medication will lower his BP Paroxysmal atrial fibrillation 327050084 I48.0 Heart rate is well controlled MITESH score of 2continue with full aspirin for now Ventricula r premature complex 287599308 I49.3 His heart monitor showed BBB, occasional PVCs and PACs.will start him on fish oil and mag ox Dyspnea on exertion 6084 5006 R06.09 Had ECHO on 12/21/23 showed LV chamber size is normal. LV wall thickness is moderately increased. The estimated left ventricle ejection fraction is 60-65% (normal). LV relaxation is impaired. Negative stress test [id number] Mikhail Romeo MD [facility] [address] [place] [address] 04/05/2024 09:42:41 04/05/2024 10:33:38 Chronic obstructive pulmonary disease 00994910 J44.9 follow up with pulmonolog ist Dyslipidemia 536926639 E 78.5 His LDL was 70 done 11/05 and he is taking simvastati n. Essential hypertension 11131788 I10 BP is elevated but his dizziness improved, it is ok to keep his BP in the 140/80 for now as his parkinson medication will lower his BP Paroxysmal atrial fibrillation 243325079 I48.0 Heart rate is well controlled MITESH score of 2continue with full aspirin for now due to the risk of falling Ventricula r premature complex 461102893 I49.3 His heart monitor showed BBB, occasional PVCs and PACs.chrissie nue fish oil and mag ox Dyspnea on exertion 6084 5006 R06.09 Had ECHO on 12/21/23 showed LV chamber size is normal. LV wall thickness is moderately increased. The estimated left ventricle ejection fraction is 60-65% (normal). LV relaxation is impaired. Negative stress test Dizziness 907335081 R42 will repeat his [place] Health Concerns Section Related Observation LastModified by Organization Detai ls LastModified Time None Recorded Concern Status LastModified by Organization Details LastModified Time None Recorded Advance Directives Directive N: Payers Insurance Date Sequence Insurance Name Policy Number Policy Burton Covered Member ID Burton Member ID Guarantor Name 07/05/2023 3 [place] WHEN MEDICARE OR MEDICARE REPLACEMENT PRIMARY) Soren Garcia [id number] Soren Garcia 07/05/2023 2 [place] [employer] [place] [employer] Soren Garcia [id number] Soren Garcia 07/05/2023 1 [employer] (MEDICARE REPLACEMENT/AD VANTAGE - PPO) Soren Garcia [id number] Soren Garcia 06/20/2024 1 [facility] (MEDICARE REPLACEMENT/AD VANTAGE - HMO) [id number] Soren Garcia [id number] Soren Garcia 07/05/2023 1 [place] Soren Garcia [id number] Soren Garcia 07/05/2023 [place] [facility] Soren Garcia [id number] Soren Garcia Notes Date Note Type Note Provider Name and Address Organization Details Recorded Time 08/08/2023 text/html 08/08/23CC : Cardiac follow up dyspnea on [id number] years-old -Indian man with hypertension, paroxysmal a fib ,dyslipidemia, LVH ,Parkinson's, and obesity presents today for 1 month follow-up. He was last seen in the clinic on 07/05/23, since then he is doing well. He reporting occasional chest pain that last for seconds . His stress test is negative. *Last LDL was 107 done on 09/18/19.Pt takes simvastatin 20 mg. He denies ER visits and hospitalizations since he was last seen. Today reports:occasional chest pain.Denies shortness of breath at rest. Has mild dyspnea on exertion.No orthopnea. No PNDs.Denies heart palpitations.Denies dizziness. Denies syncope or near syncope.No ankle or leg edema.No major bleeding events.No reported side effects from medications. Taking medications as prescribed with no missed doses.Denies snoring, daytime somnolence and AM headache.*Last LDL was 107 done on 09/18/19.Pt takes simvastatin 20 mg. Previously:He has occasional chest pain that last for few minutes that run across his chest. He also has occasional dyspnea on exertion. *ECHO 12/12/2020: Injection of contrast demonstrated no interatrial shunt. Ejection fraction =50-55%. *The right ventricle is mildly dilated. The right ventricular systolic function is borderline reduced. *Had negative stress test done in 04/17/19 with normal LV systolic function , EF 60%Results from this visit, or from the past:03/16/21 EKG; Sinus rhythm (slow) P. normal QRS extreme right superior deviation. RBBB. QRS= 174 ms. QR in V1. S > 30 ms in V5 V6. low voltage in precordial lead. ST-T NORMAL 09/19/19: TC 166 ,TG 73 ,HDL 44 ,LDL 107 01/04/18: TC 185 01/04/18: Na 144 ,K 4.4 ,CL 105 ,CO2 30.6 , GLU 107 , BUN 22 , CR 1.10 ,TC 185 ,AST13 ,ALT 5, HgA1c 5.8 01/04/18: TC 185 SOD 141, K 3.5, CL 104, CO2 29, GL 122, BUN 13, CR 1.10 02/09/17: SOD 141, K 3.5, CL 104, CO2 29, GL 122, BUN 13, CR 1.10 01/04/18: Na 144 ,K 4.4, GLU 107, BUN 22, CR 1.10,AST13 ,ALT 5, HgA1c 5.8, TC 135, 12-26-2016 : SOD 140, K 3.4, CL 101, CO2 30, GL 111, BUN 18, CR 0.9 AST 14, ALT 6 03/17/2020 : EKG ; Atrial premature beats ,RBBB,Poor R progression in ches leads 09/17/19 EKG : Poor R progression in chest leads 04/02/19 / EKG / abnormality low voltage in chest leads EKG 10/02/18: Sinus bradycardia. IRBBB. Poor R progression in chest leads EKG 04/03/18: RBBB EK10/03/17 Sinus Bradycardia. RBBB and right axis. Possible right ventricular hypertrophy. Consider pulmonary disease or posterior fascicular block. Abnormal. EK06/02/17 Sinus bradycardia. RBBB and right axis. Possible right ventricular hypertrophy. Consider pulmonary disease or posterior fascicular block. Abnormal, EK01/20/17 Sinus Bradycardia. RSR(V1) nondiagnostic. OLd inferior infarct. ABNORMAL. 04/17/19 ATUL: Adequate Stress with Lexiscan. Negative Lexiscan stress test. Normal LV systolic function. LVEF 60%. 12/12/2020: Echocardiographic Studies; Injection of contrast demonstrated no interatrial shunt Ejection fraction =50-55% No obvious regional wall motion abnormalities noted The right ventricle is mildly dilated The right ventricular systolic function is borderline reduced 04/19/18 ECHO: LV chamber size is normal. There is normal global systolic function and contractility. There is mild tricuspid regurgitation. The estimated RV systolic pressure is 30-40. ECHO: 01/20/17 LV chamber size is normal. LV wall thickness is moderately increased. There is normal global systolic function and contractility. The estimated left ventricle ejection fraction is 55-60% (normal). Diastolic function is abnormal (Grade 2). Left atrium chamber is mildly dilated. There is mild tricuspid regurgitation. Carotid US 12/12/2020 No significant stenosis in either internal carotid artery 04/17/19 ATUL: Adequate Stress with Lexiscan. Negative Lexiscan stress test. Normal LV systolic function. LVEF 60%. Lexiscan Cardiolite Stress Test 01/20/17 : Negative lexiscan stress test. Normal LV systolic function. Adequate stress with lexiscan. Abnormal stress test. Artifact noted. LVEF 55%. MERLE JOHN [facility] [place] [facility] 08/08/2023 10:47:45 11/09/2023 text/html 11/09/23CC : Cardiac follow up dyspnea on [id number] years-old -Indian man with hypertension, paroxysmal a fib ,dyslipidemia, LVH ,Parkinson's, and obesity presents today for 3 month follow-up. He was last seen in the clinic on 08/08/23, since then he has more dizziness. His dizziness assocated with almost near syncope. His LDL was 70 done 11/05 and he is taking simvastatin.He denies ER visits and hospitalizations since he was last seen. Today reports:Denies chest pain.Denies shortness of breath at rest. Has mild dyspnea on exertion.No orthopnea. No PNDs.Denies heart palpitations.occasiona l dizziness. Denies syncope or near syncope.No ankle or leg edema.No major bleeding events.No reported side effects from medications. Taking medications as prescribed with no missed doses.Denies snoring, daytime somnolence and AM headache.*Last LDL was 107 done on 09/18/19.Pt takes simvastatin 20 mg. Previously:His stress test is negative. He has occasional chest pain that last for few minutes that run across his chest. He also has occasional dyspnea on exertion. *ECHO 12/12/2020: Injection of contrast demonstrated no interatrial shunt. Ejection fraction =50-55%. *The right ventricle is mildly dilated. The right ventricular systolic function is borderline reduced. *Had negative stress test done in 04/17/19 with normal LV systolic function , EF 60%Results from this visit, or from the past:03/16/21 EKG; Sinus rhythm (slow) P. normal QRS extreme right superior deviation. RBBB. QRS= 174 ms. QR in V1. S > 30 ms in V5 V6. low voltage in precordial lead. ST-T NORMAL 09/19/19: TC 166 ,TG 73 ,HDL 44 ,LDL 107 01/04/18: TC 185 01/04/18: Na 144 ,K 4.4 ,CL 105 ,CO2 30.6 , GLU 107 , BUN 22 , CR 1.10 ,TC 185 ,AST13 ,ALT 5, HgA1c 5.8 01/04/18: TC 185 SOD 141, K 3.5, CL 104, CO2 29, GL 122, BUN 13, CR 1.10 02/09/17: SOD 141, K 3.5, CL 104, CO2 29, GL 122, BUN 13, CR 1.10 01/04/18: Na 144 ,K 4.4, GLU 107, BUN 22, CR 1.10,AST13 ,ALT 5, HgA1c 5.8, TC 135, 12-26-2016 : SOD 140, K 3.4, CL 101, CO2 30, GL 111, BUN 18, CR 0.9 AST 14, ALT 6 03/17/2020 : EKG ; Atrial premature beats ,RBBB,Poor R progression in ches leads 09/17/19 EKG : Poor R progression in chest leads 04/02/19 / EKG / abnormality low voltage in chest leads EKG 10/02/18: Sinus bradycardia. IRBBB. Poor R progression in chest leads EKG 04/03/18: RBBB EK10/03/17 Sinus Bradycardia. RBBB and right axis. Possible right ventricular hypertrophy. Consider pulmonary disease or posterior fascicular block. Abnormal. EK06/02/17 Sinus bradycardia. RBBB and right axis. Possible right ventricular hypertrophy. Consider pulmonary disease or posterior fascicular block. Abnormal, EK01/20/17 Sinus Bradycardia. RSR(V1) nondiagnostic. OLd inferior infarct. ABNORMAL. 04/17/19 ATUL: Adequate Stress with Lexiscan. Negative Lexiscan stress test. Normal LV systolic function. LVEF 60%. 12/12/2020: Echocardiographic Studies; Injection of contrast demonstrated no interatrial shunt Ejection fraction =50-55% No obvious regional wall motion abnormalities noted The right ventricle is mildly dilated The right ventricular systolic function is borderline reduced 04/19/18 ECHO: LV chamber size is normal. There is normal global systolic function and contractility. There is mild tricuspid regurgitation. The estimated RV systolic pressure is 30-40. ECHO: 01/20/17 LV chamber size is normal. LV wall thickness is moderately increased. There is normal global systolic function and contractility. The estimated left ventricle ejection fraction is 55-60% (normal). Diastolic function is abnormal (Grade 2). Left atrium chamber is mildly dilated. There is mild tricuspid regurgitation. Carotid US 12/12/2020 No significant stenosis in either internal carotid artery 04/17/19 ATUL: Adequate Stress with Lexiscan. Negative Lexiscan stress test. Normal LV systolic function. LVEF 60%. Lexiscan Cardiolite Stress Test 01/20/17 : Negative lexiscan stress test. Normal LV systolic function. Adequate stress with lexiscan. Abnormal stress test. Artifact noted. LVEF 55%. MERLE prado [place] - [facility] 11/09/2023 11:30:26 11/30/2023 text/html 4CC : Cardiac follow up dyspnea on [id number] years-old -Indian man with hypertension, paroxysmal a fib ,dyslipidemia, LVH ,Parkinson's, and obesity presents today for 2 week follow-up. He was last seen in the clinic on 11/09/23 since then he is feeling better after stopping his amlodipin. His heart monitor showed BBB, occasional PVCs and PACs.He denies ER visits and hospitalizations since he was last seen. Today reports:Denies chest pain.PT ADMITS shortness of breath at rest. Has mild dyspnea on exertion.No orthopnea. No PNDs.Denies heart palpitations.occasiona l dizziness. Denies syncope or near syncope.No ankle or leg edema.No major bleeding events.No reported side effects from medications. Taking medications as prescribed with no missed doses.Denies snoring, daytime somnolence and AM headache.*Last LDL was 107 done on 09/18/19.Pt takes simvastatin 20 mg. Previously:His stress test is negative. He has occasional chest pain that last for few minutes that run across his chest. He also has occasional dyspnea on exertion. *ECHO 12/12/2020: Injection of contrast demonstrated no interatrial shunt. Ejection fraction =50-55%. *The right ventricle is mildly dilated. The right ventricular systolic function is borderline reduced. *Had negative stress test done in 04/17/19 with normal LV systolic function , EF 60%Results from this visit, or from the past:03/16/21 EKG; Sinus rhythm (slow) P. normal QRS extreme right superior deviation. RBBB. QRS= 174 ms. QR in V1. S > 30 ms in V5 V6. low voltage in precordial lead. ST-T NORMAL 09/19/19: TC 166 ,TG 73 ,HDL 44 ,LDL 107 01/04/18: TC 185 01/04/18: Na 144 ,K 4.4 ,CL 105 ,CO2 30.6 , GLU 107 , BUN 22 , CR 1.10 ,TC 185 ,AST13 ,ALT 5, HgA1c 5.8 01/04/18: TC 185 SOD 141, K 3.5, CL 104, CO2 29, GL 122, BUN 13, CR 1.10 02/09/17: SOD 141, K 3.5, CL 104, CO2 29, GL 122, BUN 13, CR 1.10 01/04/18: Na 144 ,K 4.4, GLU 107, BUN 22, CR 1.10,AST13 ,ALT 5, HgA1c 5.8, TC 135, 12-26-2016 : SOD 140, K 3.4, CL 101, CO2 30, GL 111, BUN 18, CR 0.9 AST 14, ALT 6 03/17/2020 : EKG ; Atrial premature beats ,RBBB,Poor R progression in ches leads 09/17/19 EKG : Poor R progression in chest leads 04/02/19 / EKG / abnormality low voltage in chest leads EKG 10/02/18: Sinus bradycardia. IRBBB. Poor R progression in chest leads EKG 04/03/18: RBBB EK10/03/17 Sinus Bradycardia. RBBB and right axis. Possible right ventricular hypertrophy. Consider pulmonary disease or posterior fascicular block. Abnormal. EK06/02/17 Sinus bradycardia. RBBB and right axis. Possible right ventricular hypertrophy. Consider pulmonary disease or posterior fascicular block. Abnormal, EK01/20/17 Sinus Bradycardia. RSR(V1) nondiagnostic. OLd inferior infarct. ABNORMAL. 04/17/19 ATUL: Adequate Stress with Lexiscan. Negative Lexiscan stress test. Normal LV systolic function. LVEF 60%. 12/12/2020: Echocardiographic Studies; Injection of contrast demonstrated no interatrial shunt Ejection fraction =50-55% No obvious regional wall motion abnormalities noted The right ventricle is mildly dilated The right ventricular systolic function is borderline reduced 04/19/18 ECHO: LV chamber size is normal. There is normal global systolic function and contractility. There is mild tricuspid regurgitation. The estimated RV systolic pressure is 30-40. ECHO: 01/20/17 LV chamber size is normal. LV wall thickness is moderately increased. There is normal global systolic function and contractility. The estimated left ventricle ejection fraction is 55-60% (normal). Diastolic function is abnormal (Grade 2). Left atrium chamber is mildly dilated. There is mild tricuspid regurgitation. Carotid US 12/12/2020 No significant stenosis in either internal carotid artery 04/17/19 ATUL: Adequate Stress with Lexiscan. Negative Lexiscan stress test. Normal LV systolic function. LVEF 60%. Lexiscan Cardiolite Stress Test 01/20/17 : Negative lexiscan stress test. Normal LV systolic function. Adequate stress with lexiscan. Abnormal stress test. Artifact noted. LVEF 55%. MERLE JOHN [place], [place] - [facility] 11/30/2023 15:26:38 01/07/2024 text/html 01/07/24CC : Cardiac follow up68 years-old -Indian man with hypertension, paroxysmal a fib ,dyslipidemia, LVH ,Parkinson's, and obesity presents today for 1 month follow-up with ECHO results. Had ECHO on 12/21/23 showed LV chamber size is normal. LV wall thickness is moderately increased. The estimated left ventricle ejection fraction is 60-65% (normal). LV relaxation is impaired. He was last seen in the clinic on 11/09/23 since then he is feeling better after stopping his amlodipin. His heart monitor showed BBB, occasional PVCs and PACs.He denies ER visits and hospitalizations since he was last seen. Today reports: CC: pt has no concerns at this timeDenies chest pain.PT ADMITS shortness of breath at rest. Has mild dyspnea on exertion.No orthopnea. No PNDs.Denies heart palpitations.denies dizziness. Denies syncope or near syncope.No ankle or leg edema.No major bleeding events.No reported side effects from medications. Taking medications as prescribed with no missed doses.Denies snoring, daytime somnolence and AM headache.*Last LDL was 107 done on 09/18/19.Pt takes simvastatin 20 mg. *Had ECHO on 12/21/23 showed LV chamber size is normal. LV wall thickness is moderately increased. The estimated left ventricle ejection fraction is 60-65% (normal). LV relaxation is impaired. The aortic valve is mildly calcified. There is mild thickening of the mitral valve anterior leaflet. There is mild tricuspid regurgitation. Mild elevation of estimated RV systolic pressure. PVC's, Right bundle branch block. Previously:His stress test is negative. He has occasional chest pain that last for few minutes that run across his chest. He also has occasional dyspnea on exertion. *The right ventricle is mildly dilated. The right ventricular systolic function is borderline reduced. *Had negative stress test done in 04/17/19 with normal LV systolic function , EF 60%Results from this visit, or from the past:03/16/21 EKG; Sinus rhythm (slow) P. normal QRS extreme right superior deviation. RBBB. QRS= 174 ms. QR in V1. S > 30 ms in V5 V6. low voltage in precordial lead. ST-T NORMAL 09/19/19: TC 166 ,TG 73 ,HDL 44 ,LDL 107 01/04/18: TC 185 01/04/18: Na 144 ,K 4.4 ,CL 105 ,CO2 30.6 , GLU 107 , BUN 22 , CR 1.10 ,TC 185 ,AST13 ,ALT 5, HgA1c 5.8 01/04/18: TC 185 SOD 141, K 3.5, CL 104, CO2 29, GL 122, BUN 13, CR 1.10 02/09/17: SOD 141, K 3.5, CL 104, CO2 29, GL 122, BUN 13, CR 1.10 01/04/18: Na 144 ,K 4.4, GLU 107, BUN 22, CR 1.10,AST13 ,ALT 5, HgA1c 5.8, TC 135, 12-26-2016 : SOD 140, K 3.4, CL 101, CO2 30, GL 111, BUN 18, CR 0.9 AST 14, ALT 6 03/17/2020 : EKG ; Atrial premature beats ,RBBB,Poor R progression in ches leads 09/17/19 EKG : Poor R progression in chest leads 04/02/19 / EKG / abnormality low voltage in chest leads EKG 10/02/18: Sinus bradycardia. IRBBB. Poor R progression in chest leads EKG 04/03/18: RBBB EK10/03/17 Sinus Bradycardia. RBBB and right axis. Possible right ventricular hypertrophy. Consider pulmonary disease or posterior fascicular block. Abnormal. EK06/02/17 Sinus bradycardia. RBBB and right axis. Possible right ventricular hypertrophy. Consider pulmonary disease or posterior fascicular block. Abnormal, EK01/20/17 Sinus Bradycardia. RSR(V1) nondiagnostic. OLd inferior infarct. ABNORMAL. 04/17/19 ATUL: Adequate Stress with Lexiscan. Negative Lexiscan stress test. Normal LV systolic function. LVEF 60%. 12/12/2020: Echocardiographic Studies; Injection of contrast demonstrated no interatrial shunt Ejection fraction =50-55% No obvious regional wall motion abnormalities noted The right ventricle is mildly dilated The right ventricular systolic function is borderline reduced 04/19/18 ECHO: LV chamber size is normal. There is normal global systolic function and contractility. There is mild tricuspid regurgitation. The estimated RV systolic pressure is 30-40. ECHO: 01/20/17 LV chamber size is normal. LV wall thickness is moderately increased. There is normal global systolic function and contractility. The estimated left ventricle ejection fraction is 55-60% (normal). Diastolic function is abnormal (Grade 2). Left atrium chamber is mildly dilated. There is mild tricuspid regurgitation. Carotid US 12/12/2020 No significant stenosis in either internal carotid artery 04/17/19 ATUL: Adequate Stress with Lexiscan. Negative Lexiscan stress test. Normal LV systolic function. LVEF 60%. Lexiscan Cardiolite Stress Test 01/20/17 : Negative lexiscan stress test. Normal LV systolic function. Adequate stress with lexiscan. Abnormal stress test. Artifact noted. LVEF 55%. Mikhail Romeo MD [address] [place], [address], [place] - [facility] 01/07/2024 09:55:38 04/05/2024 text/html 04/05/24CC : Cardiac follow up chest pain68 years-old -Indian man with hypertension, paroxysmal a fib ,dyslipidemia, LVH ,Parkinson's, and obesity presents today for 3 month follow-up. He was last seen in the clinic on 01/07/24, since then he is still feel dizzy occasionally probably due to parkinson medication. He denied chest pain. *Last LDL was 70 done on 11/01/23.Pt takes simvastatin 20 mg. He denies ER visits and hospitalizations since he was last seen. Today reports:trouble breathing 02 sats low today . pt is has been having fainting spells alot more . dizziness .Denies chest pain.Denies shortness of breath at rest. Has mild dyspnea on exertion.No orthopnea. No PNDs.Denies heart palpitations.Occasiona l dizziness. Denies syncope or near syncope.No ankle or leg edema.No major bleeding events.No reported side effects from medications. Taking medications as prescribed with no missed doses.Denies snoring, daytime somnolence and AM headache.*Last LDL was 70 done on 11/01/23.Pt takes simvastatin 20 mg. Previously:He is feeling better after stopping his amlodipin. His heart monitor showed BBB, occasional PVCs and PACs. *Had ECHO on 12/21/23 showed LV chamber size is normal. LV wall thickness is moderately increased. The estimated left ventricle ejection fraction is 60-65% (normal). LV relaxation is impaired. The aortic valve is mildly calcified. There is mild thickening of the mitral valve anterior leaflet. There is mild tricuspid regurgitation. Mild elevation of estimated RV systolic pressure. PVC's, Right bundle branch block. His stress test is negative. He has occasional chest pain that last for few minutes that run across his chest. He also has occasional dyspnea on exertion. *The right ventricle is mildly dilated. The right ventricular systolic function is borderline reduced. *Had negative stress test done in 04/17/19 with normal LV systolic function , EF 60%Results from this visit, or from the past:03/16/21 EKG; Sinus rhythm (slow) P. normal QRS extreme right superior deviation. RBBB. QRS= 174 ms. QR in V1. S > 30 ms in V5 V6. low voltage in precordial lead. ST-T NORMAL 09/19/19: TC 166 ,TG 73 ,HDL 44 ,LDL 107 01/04/18: TC 185 01/04/18: Na 144 ,K 4.4 ,CL 105 ,CO2 30.6 , GLU 107 , BUN 22 , CR 1.10 ,TC 185 ,AST13 ,ALT 5, HgA1c 5.8 01/04/18: TC 185 SOD 141, K 3.5, CL 104, CO2 29, GL 122, BUN 13, CR 1.10 02/09/17: SOD 141, K 3.5, CL 104, CO2 29, GL 122, BUN 13, CR 1.10 01/04/18: Na 144 ,K 4.4, GLU 107, BUN 22, CR 1.10,AST13 ,ALT 5, HgA1c 5.8, TC 135, 12-26-2016 : SOD 140, K 3.4, CL 101, CO2 30, GL 111, BUN 18, CR 0.9 AST 14, ALT 6 03/17/2020 : EKG ; Atrial premature beats ,RBBB,Poor R progression in ches leads 09/17/19 EKG : Poor R progression in chest leads 04/02/19 / EKG / abnormality low voltage in chest leads EKG 10/02/18: Sinus bradycardia. IRBBB. Poor R progression in chest leads EKG 04/03/18: RBBB EK10/03/17 Sinus Bradycardia. RBBB and right axis. Possible right ventricular hypertrophy. Consider pulmonary disease or posterior fascicular block. Abnormal. EK06/02/17 Sinus bradycardia. RBBB and right axis. Possible right ventricular hypertrophy. Consider pulmonary disease or posterior fascicular block. Abnormal, EK01/20/17 Sinus Bradycardia. RSR(V1) nondiagnostic. OLd inferior infarct. ABNORMAL. 04/17/19 ATUL: Adequate Stress with Lexiscan. Negative Lexiscan stress test. Normal LV systolic function. LVEF 60%. 12/12/2020: Echocardiographic Studies; Injection of contrast demonstrated no interatrial shunt Ejection fraction =50-55% No obvious regional wall motion abnormalities noted The right ventricle is mildly dilated The right ventricular systolic function is borderline reduced 04/19/18 ECHO: LV chamber size is normal. There is normal global systolic function and contractility. There is mild tricuspid regurgitation. The estimated RV systolic pressure is 30-40. ECHO: 01/20/17 LV chamber size is normal. LV wall thickness is moderately increased. There is normal global systolic function and contractility. The estimated left ventricle ejection fraction is 55-60% (normal). Diastolic function is abnormal (Grade 2). Left atrium chamber is mildly dilated. There is mild tricuspid regurgitation. Carotid US 12/12/2020 No significant stenosis in either internal carotid artery 04/17/19 ATUL: Adequate Stress with Lexiscan. Negative Lexiscan stress test. Normal LV systolic function. LVEF 60%. Lexiscan Cardiolite Stress Test 01/20/17 : Negative lexiscan stress test. Normal LV systolic function. Adequate stress with lexiscan. Abnormal stress test. Artifact noted. LVEF 55%. MERLE [place], [place] - [facility] 04/05/2024 10:30:39
--- OUTSIDE RECORDS SUMMARY | 2025-09-24 10:28 | XMS_ITS | Clinical Summary ---
Author Organization [facility] Address Formerly [facility] [place] [address] Care Team Providers Care Patent Engineer Name Role Phone Michele Monique MD Primary Care Provider [phone] Colt Montes MD Unavailable [phone] Allergies Active Allergy Reactions Criticality Noted Date [...] Sex Assigned at Male 12/20/2024 8:59 AM [employer] Legal Sex Male 4:48 PM CDT Gender [...] 2) 2004 Annual Medicare Wellness Visit 2019 PHQ-2 (Physician [place]) 11/14/2024 09/26/2023 COVID-19 Vaccine ( season) 2025 09/09/2023, 09/19/2022, 08/19/2021, Additional history exists Influenza Adult (#1) 2025 07/24/2024, 07/29/2020, 10/02/2019, Additional history exists DTaP, Tdap and Td Vaccines (2 - Td or Tdap) 01/14/2026 01/15/2016 RSV Immunization or 60+ Years (1 - 1-dose 75+ series) 2029 Colorectal Cancer Screening Colonoscopy (10 Years) 02/27/2032 02/26/2022, 02/26/2022 Pneumococcal Vaccine: 50+ Years Completed 07/01/2021, 10/02/2019 Hepatitis A Vaccines Aged Out No long er eligible based on patient's age to complete this topic Meningococcal B Vaccine Aged Out No l [...] Most Recently Relevant to Health Maintenance Insurance [facility] MEDICARE Advance Directives * Full Code (Latest Code Status on File) Date Activated Date Inactivated Comments 01/31/2025 11:05 AM 01/31/2025 3:21 PM Care Teams Patent Engineer Relationship Specialty Start Date End Date Michele Monique MD PCP - General 02/08/17 Colt Montes MD [address] [place] [address] [address] [place] [address] CARDIOVASCULAR DISEASE 12/07/24
--- OUTSIDE RECORDS SUMMARY | 2025-09-24 10:28 | XMS_ITS | Clinical Summary ---
Author Organization [facility] Address [address] [place] [id number] Phone Care Team Providers Care Psych Sales Specialist Name Role Phone Michele Monique MD Primary Care Provider [phone] Allergies Active Allergy Reactions Criticality Noted Date Comments Cyclobenzaprine 01/26/2022 Medications albuterol HFA (PROVENTIL HFA) 108 (90 Base) MCG/ACT inhaler Acti ve diphenhydrAMINE (BENADRYL) 25 MG capsule 1 Active EPINEPHrine (EPIPEN) 0.3 MG/0.3ML injection syringe 1 Active gabapentin (NEURONTIN) 600 MG tablet 1 Active lisinopril-hydr oCHLOROthiazide (PRINZIDE) 20-12.5 MG per tablet 1 Active traMADol (ULTRAM) 50 MG tablet 9 Active tamsulosin (FLOMAX) 0.4 MG 24 hr capsule 9 Active pantoprazole (PROTONIX) 20 MG EC tablet Active furosemide (LASIX) 20 MG tablet TAKE 1 TABLET(20 MG) BY MOUTH 1 TIME EACH DAY 90 tablet 1 5 Active ferrous sulfate 325 (65 Fe) MG tablet Take 1 tablet (325 mg total) by mouth 1 (one) time each day with breakfast 30 tablet 11 5 03/28/20 26 Active cholecalciferol (VITAMIN D-3) 50 MCG (1999 UT) capsule TAKE 1 CAPSULE BY MOUTH DAILY 90 capsule 1 5 Active Active Problems Problem Noted Date Diagnosed Date Stage 3a chronic kidney disease 03/25/2025 Anemia in chronic kidney disease 03/25/2025 Secondary hyperparathyroidism 01/04/2024 Essential (primary) hypertension 01/26/2017 Resolved Problems Problem Noted Date Diagnosed Date Resolved Date Benign prostatic hyperplasia without lower urinary tract symptom 01/26/2022 07/04/2024 Parkinson's disease 01/25/2022 07/04/20 Stage 3b chronic kidney disease 01/25/2022 03/25/2025 Presence of right artificial hip joint 02/15/2017 01/25/2022 Chronic kidney disease, stage 2 (mild) 01/26/2017 01/25/2022 Obstructive and reflux uropathy, unspecified 7 08/12/2022 Immunizations Immunization Administration Dates Next Due Influenza TIV (IM) 03/10/2016(Deferred: Patient Refused) Family History Medical History Relation Comments Heart disease Father Hypertension Father Cancer Mother Diabetes mellitus Sibling 1 Hypertensive disorder Sibling 2 Kidney disease Neg Hx Relation Status Comments Father Mother Other neoplasm of ovar y Sibling 1 Sibling 2 Social History Tobacco Use Types Packs/Day Years Used Date Smoking Tobacco: Former Smokeless Tobacco: Never Tobacco Cessation:Counseling Given: Not Answered Sex and Gender Information Value Date Recorded Sex Assigned at Not on file Legal Sex Male 8:47 AM [facility] Gender Identity Not on file Sexual Orientation Not on file Last Filed Vital Signs Vital Sign Reading Time Taken Comments Blood Pressure 160/90 03/28/2025 1:53 PM CDT Pulse 62 03/28/2025 1:53 PM CDT Temperature 36.1 C (97 F) 08/26/2022 9:48 AM CDT Respiratory Rate - - Oxygen Saturation 96% 07/07/2023 11:07 AM CDT Inhaled Oxygen Concentration - - Weight 88.9 kg (196 lb) 03/28/2025 1:53 PM CDT Height 167.6 cm (5' 6) 03/28/2025 1:53 PM CDT Body Mass Index 31.64 03/28/2025 1:53 PM CDT Plan of Treatment Upcoming Encounters Date Type Department Care Team (Late st Contact Info) Description 10/01/2025 9:20 AM COLOR WORKER Office Visit [facility] [address] [facility], [facility] [address] [place], [place] [id number] Farheen Wise NP [address] [id number] Health Maintenance Due Date Last Done Comments Pneumococcal PPSV23/PCV13 65 + Years / High and Highest Risk (3 of 4 - PCV) 11/27/2020 11/27/2019, 10/02/2019 Influenza Vaccine (#1) 2025 Insurance [facility] [employer] MEDICARE Care Teams Psych Sales Specialist Relationship Specialty Start Date End Date Michele Monique MD [address] [place] [id number] PCP - General Family Medicine 01/25/22
== END 2025-09-24 09:56 | disposition home or self-care (01) ==
PROVIDERS: PCP Family Medicine; Visit Provider Neurological Surgery
DX: Z98.1 Arthrodesis status (principal)
CPT/HCPCS: 72040